=== PATIENT | female | born 1985 | race Caucasian/White ===

== ENCOUNTER 2018-10-26 07:08 | Inpatient (IN) | payer OTHER ==
[2018-10-26] MEDS ORDERED: Citric Acid/Sodium Citrate Solution 30 ML Cup PO ONE (07:33)
[2018-10-26] MEDS ORDERED: Sodium Chloride 0.9% 2.5 ML Syringe FLUSH PRN (07:33)
[2018-10-26] MEDS ORDERED: ceFAZolin 2 GM in Premix Bag 1 BAG IV ONE (07:33)
[2018-10-26] MEDS ORDERED: Sodium Chloride 0.9% 10 ML Syringe FLUSH PRN (07:33)
[2018-10-26] MEDS ORDERED: Sodium Chloride 0.9% 10 ML SDV IV PRN (07:33)
[2018-10-26] MEDS ORDERED: Morphine PF 10 MG/10 ML SDV ONE (07:35)
[2018-10-26] MEDS ORDERED: Ondansetron 4 MG/2 ML SDV ONE (07:35)
[2018-10-26] MEDS ORDERED: Morphine 10 MG/ML Syringe ONE (07:35)
[2018-10-26] MEDS ORDERED: fentaNYL 100 MCG/2 ML SDV ONE (07:37)
[2018-10-26] MEDS ORDERED: ceFAZolin/Dextrose,Iso-Osmotic 2 GM/50 ML Duplex Bag IV ONE (07:39)
[2018-10-26] MEDS ORDERED: Octyl 2-Cyanoacrylate 1 Tube ONE (07:44)
[2018-10-26] MEDS ORDERED: Oxytocin/0.9 % Sodium Chloride 30 UNIT/500 ML BAG IV SCH (07:45)
[2018-10-26] MEDS ORDERED: Lactated Ringers 1,000 ML IV SCH ×2 (07:45→09:30)
--- NOTE | 2018-10-26 07:45 | PCM.PREANE ---
Preanesthetic Assessment - Anesthesia/Transfusion/Family Hx Anesthesia History: Prior Anesthesia Without Reaction Family History of Anesthesia Reaction: No Transfusion History: No Prior Transfusion(s) Intubation History: Unknown - Review of Systems General: No Symptoms Pulmonary: No Symptoms Cardiovascular: No Symptoms Gastrointestinal: No Symptoms Neurological: No Symptoms Other: Reports: None - Physical Assessment Height: 5 ft 7 in Weight: 87.997 kg ASA Class: 2E Mental Status: Alert & Oriented x3 Airway Class: Mallampati = 2 Dentition: Reports: Normal Dentition Thyro-Mental Finger Breadths: 3 Mouth Opening Finger Breadths: 3 ROM/Head Extension: Full Lungs: Clear to Auscultation, Normal Respiratory Effort Cardiovascular: Regular Rate, Regular Rhythm - Allergies Allergies/Adverse Reactions: Allergies Allergy/AdvReac Type Severity Reaction Status Date / Time Sulfa (Sulfonamide Allergy Vomiting Verified 10/24/18 14:21 Antibiotics) - Acknowledgements Anesthesia Type Planned: Spinal Pt an Appropriate Candidate for the Planned Anesthesia: Yes Alternatives and Risks of Anesthesia Discussed w Pt/Guardian: Yes Pt/Guardian Understands and Agrees with Anesthesia Plan: Yes PreAnesthesia Questionnaire HEENT History: Reports: None Cardiovascular History: Reports: None Respiratory History: Reports: Asthma (Seasonal) Gastrointestinal History: Reports: GERD (All the time) Genitourinary History: Reports: None [employer] SURVEYOR History: Reports: : 2 Para: 1 LMP (Approximate): Musculoskeletal History: Reports: None Neurological History: Reports: None Psychiatric History: Reports: None Endocrine/Metabolic History: Reports: Obesity/BMI 30+ Hematologic History: Reports: None Immunologic History: Reports: None Oncologic (Cancer) History: Reports: None Dermatologic History: Reports: None - Infectious Disease History Infectious Disease History: Reports: None - HOME MEDS Home Medications: Home Meds PNV95/Ferrous Fumarate/FA [ Tablet] 1 tab PO DAILY 10/24/18 [History] - CURRENT (IN HOUSE) MEDS Current Meds: Current Medications Cefazolin Sodium/Dextrose 2 gm (/ Premix) 50 mls @ 100 mls/hr IV ONETIME ONE Stop: 10/26/18 08:02 Lactated Ringer's (Ringers, Lactated) 1,000 mls @ 500 mls/hr IV BOLUS MI Oxytocin/Sodium Chloride (Oxytocin 30 Unit/500 Ml-Ns) 30 unit in 500 mls @ 250 mls/hr IV TITRATE MI Sodium Chloride (Saline Flush) 10 ml FLUSH ASDIRECTED PRN PRN Reason: Keep Vein Open Sodium Chloride (Saline Flush) 2.5 ml FLUSH ASDIRECTED PRN PRN Reason: Keep Vein Open Sodium Chloride (Normal Saline) 10 ml IV ASDIRECTED PRN PRN Reason: IV Use Discontinued Medications Cefazolin Sodium/Dextrose (Ancef) Confirm Administered Dose 2 gm IV .STK-MED ONE Stop: 10/26/18 07:40 Citric Acid/Sodium Citrate (Bicitra Solution) 30 ml PO ONETIME ONE Stop: 10/26/18 07:34 Fentanyl (Sublimaze) Confirm Administered Dose 100 mcg .ROUTE .STK-MED ONE Stop: 10/26/18 07:38 Morphine Sulfate (Morphine) Confirm Administered Dose 10 mg .ROUTE .STK-MED ONE Stop: 10/26/18 07:36 Morphine Sulfate (Duramorph Pf) Confirm Administered Dose 10 mg .ROUTE .STK-MED ONE Stop: 10/26/18 07:36 Ondansetron HCl (Zofran) Confirm Administered Dose 4 mg .ROUTE .STK-MED ONE Stop: 10/26/18 07:36
[2018-10-26] MEDS ORDERED: Citric Acid/Sodium Citrate Solution 30 ML Cup ONE (07:47)
[2018-10-26] MEDS ORDERED: ePHEDrine 50 MG/ML SDV ONE (07:49)
[2018-10-26] MEDS ORDERED: Midazolam 1 MG/ML 2 ML SDV ONE (08:23)
[2018-10-26] MEDS ORDERED: Naloxone 0.4 MG/ML Syringe IVPUSH ONE (08:46)
[2018-10-26] MEDS ORDERED: Lanolin 100% Cream 7 GM Tube TOP PRN (09:23)
[2018-10-26] MEDS ORDERED: Ondansetron 4 MG/2 ML SDV IVPUSH PRN (09:23)
[2018-10-26] MEDS ORDERED: Acetaminophen/oxyCODONE 325-5 MG Tab PO PRN ×2 (09:23)
[2018-10-26] MEDS ORDERED: diphenhydrAMINE 50 MG/ML SDV IVPUSH PRN (09:23)
[2018-10-26] MEDS ORDERED: Bisacodyl 10 MG Supp RECTAL PRN (09:23)
--- NOTE | 2018-10-26 09:41 | PCM.OPNOTE ---
- General Post-Op/Procedure Note Date of Surgery/Procedure: 10/26/18 Operative Procedure(s): Repeat LTCS, extensive lysis of adhesions Findings: Liveborn male infant born at 08:21 with scores of 8/9 who weighed in at 3170 gm. Alexs abdomen had extensive adhesive disease including the uterus to the anterior abdomenal wall. See dictation for further details. Pre Op Diagnosis: 36.1 wga IUP, active labor, prior LTCS Post-Op Diagnosis: Same Anesthesia Technique: Spinal Primary Surgeon: Zaida Suarez Secondary Surgeon: Quynh Zhou ([id number]) Anesthesia Provider: Jovana Abbott Pathology: none Fluid Replacement, Intraop: 3,600 Output, Urine Amount: 160 EBL in mLs: 700 Complications: none known Condition: Good Free Text/Narrative:: Janee is a 32 year old at 36.1 wga who presented to the labor and delivery unit in active labor. She had a prior LTCS at 39 wga for breech presentation and with post-op infection; she desired a repeat LTCS. Repeat LTCS was done and extensive adhesion disease was encountered in her abdomen and pelvis, including, but not limited to, adhesion of the anterior uterus to the posterior rectus muscles. See dictation by Dr. Suarez for further details. Janee' s LTCS continued without known complications and she remained stable throughout. Baby was taken to nursery for care.
--- NOTE | 2018-10-26 10:20 | PCM.POSTAN ---
POST ANESTHESIA ASSESSMENT - MENTAL STATUS Mental Status: Alert, Oriented - RESPIRATORY Respiratory Status: Respiratory Rate WNL, Airway Patent, O2 Saturation Stable - CARDIOVASCULAR CV Status: Pulse Rate WNL, Blood Pressure Stable - GASTROINTESTINAL GI Status: No Symptoms - PAIN Pain Score: 0 - OBSERVATIONS Free Text/Narrative:: Pt crying due to baby being transferred to another facility. Denies any pain or discomfort.
[2018-10-26] MEDS ORDERED: Promethazine 25 MG/ML SDV IM ONE (12:11)
[2018-10-26] MEDS ORDERED: Scopolamine 1.5 MG Transdermal Patch TRDERM PRN (13:18)
--- NOTE | 2018-10-26 14:32 | HP ---
DATE OF : 1985 PRIMARY CARE PHYSICIAN: None PCP CHIEF COMPLAINT: Labor. HISTORY: This is a 32-year-old female, G2, P 1-0-0-1. She is at 36-1/7 weeks' gestation. She presents to Labor and Delivery with regular painful contractions. She was seen two days ago with similar symptoms and did not progress. She was known to be approximately 3 cm at that time. She has now had regular painful contractions through the night, and she is 4 to 5 cm, 90%, minus 1 station. She had category 1 heart tones. She has had a prior delivery for breech presentation. She has been previously counseled regarding options for vaginal after versus repeat and desires to proceed with repeat . Her care has otherwise been uncomplicated. She has a history of hyperemesis gravidarum. She did have a postoperative infection with her prior . She is blood type O-positive, rubella immune. She has had severe gastroesophageal reflex, she is on omeprazole and Zantac for this. PAST MEDICAL HISTORY: Significant for gastroesophageal reflux; asthma due to seasonal allergies, she uses an albuterol inhaler occasionally. She had an abnormal Pap in 2009 with no intervention required, followup Paps have been normal. PAST SURGICAL HISTORY: Appendectomy in 2001, section in 2007, breast augmentation in 2010. ALLERGIES: To sulfa. She has an intolerance to doxycycline, which makes her nauseated. CURRENT MEDICATIONS: Omeprazole, Zantac, vitamin. SOCIAL HISTORY: She denies use of tobacco, alcohol, or street drugs. She is an [employer] administrator. She is to her , [employer]. She did receive her flu shot this year as well as her Tdap during the . FAMILY HISTORY: Significant for paternal grandfather and father with gastroesophageal reflux and esophageal cancer. Mother is alive, she had a stroke at the age of 35 due to an addiction issue. Maternal aunt has Aurelio's thyroiditis. Sister has Aurelio's thyroiditis. PHYSICAL EXAMINATION: VITAL SIGNS: Blood pressure is 125/68, pulse is 84. heart tones 145, moderate variability, accelerations present, no decelerations. Contractions are every 3 to 5 minutes. GENERAL: She is alert and oriented. She is in no acute distress. LUNGS: Clear bilaterally. CV: Regular rate without murmur. ABDOMEN: Soft, gravid, nontender. EXTREMITIES: Show trace edema. : Vaginal exam 4+, 90%, minus 2 station. ASSESSMENT AND PLAN: A 36-1/7 weeks' intrauterine , active labor, prior delivery, desires repeat with risks of section discussed including bleeding; infection; injury to bowel, bladder, blood vessels or other organs; risk of thromboembolic event; risk of anesthesia. Discussed with all of these issues, she does desire to proceed with repeat . She has had her group B Strep culture obtained and is pending at the time of this dictation. It should be back within the next 24 hours. As she has a repeat , prophylaxis will not be utilized, just routine preop prophylaxis with Ancef. CLAUDE ESPINO /[id number]
--- NOTE | 2018-10-26 15:47 | OR ---
SURGEON: Zaida Suarez M.D. DATE OF PROCEDURE: 10/26/2018 PREOPERATIVE DIAGNOSES: 36 and 1/7th week intrauterine , premature labor, prior delivery. POSTOPERATIVE DIAGNOSES: 36 and 1/7th week intrauterine , premature labor, prior delivery, and extensive pelvic adhesions. [employer]VEL TRUCK DRIVER: JSOE Wolf. ANESTHESIA: Spinal. ESTIMATED BLOOD LOSS: 700 mL. FLUIDS: 2600 mL of crystalloid. URINE OUTPUT: 160 mL. FINDINGS: Live-born male, 8 and 9. Weight of 3170 g. The anterior uterus was densely adherent to the rectus muscle. There was no intervening peritoneum. The right tube was attached to bowel and the left tube was involved in the anterior abdominal wall adhesion. After lysis of adhesions, the tubes and ovaries appeared normal with a portion of the right tube still adherent to bowel, which I did not feel I could safely dissect. COMPLICATION: None known. DISPOSITION: Stable to recovery. BRIEF HISTORY: This is a 32-year-old female, G2, P1-0-0-1. She has had one prior section at 39 weeks for breech presentation. This was complicated by an infection, which by history sounds like endometritis. She has had uncomplicated care, and she has a plan for repeat delivery having been counseled regarding option of vaginal trial of labor including potential benefit of avoiding a surgical procedure, risk of uterine rupture versus proceeding with a repeat low transverse section with risks discussed including bleeding, infection, injury to bowel, bladder, blood vessels or other organs, risk of thromboembolic event, and risk of anesthesia. Understanding all these risks, she does desire to proceed with a repeat delivery. She presented at 4+ cm, 90% with regular contractions. Group B strep status is unknown. She was intact at the time of presentation without rupture of membranes. DESCRIPTION OF PROCEDURE: With the patient in left tilt position, under adequate spinal analgesia, the abdomen was prepped with chlorhexidine and draped in usual fashion for abdominal surgery. SCDs were in place. Jay catheter had been placed, and she received 2 g of Ancef IV. After documentation of adequate analgesia and an appropriate time-out was held, the prior cicatrix was excised and the incision was carried through the subcutaneous tissue to the fascia, which was scored transversely in the midline. The fascia was elevated from the underlying rectus muscles and using sharp and blunt dissection. I then attempted to separate the rectus muscle toward the cephalad portion of the fascia and found that there was dense adhesions. I then moved lower just above the level where I felt the bladder was, and I was able to separate the rectus muscle and identify some peritoneum, which I elevated and carefully incised with Metzenbaum scissors ensuring that I could see the Metzenbaum scissors through the peritoneal window. I was then able to place a finger into the peritoneal cavity. This was over the extremely lower uterine segment. I could not access enough. I could not enlarge the anterior incision without the rectus muscle from the uterus, and I was able to do so on the right. The rectus muscle remained attached on the left, but this did allow enough room to proceed with delivery of the fetus. The bladder flap was already well in the pelvis. The bladder retractor was placed. The visceroperitoneum was pushed well below the incision site and a transverse curvilinear incision was made over the lower uterine segment using a scalpel. The incision was extended using sharp and blunt dissection. The amniotic membranes were ruptured. Clear fluid was noted. The head was deep in the pelvis and was elevated without any difficulty, delivered via the uterine incision and with fundal pressure. After the cord had ceased to pulsate, it was doubly clamped and cut. Cord blood was collected for cord ABGs as well as routine cord blood sampling. Pitocin was initiated after delivery of the to assist with delivery. I was unable to perform fundal massage internally as I could not access the fundus of the uterus due to the extensive adhesions, but external massage was utilized and the placenta was delivered. The uterus was cleaned with a dry laparotomy tape. The cervix was open and therefore did not need to be opened with a ring forceps. The uterine incision was closed with a running lock suture of 0 Polysorb followed by an imbricating layer of 0 Polysorb. I then proceeded to evaluate the extensive adhesions. The anterior uterine serosa and superficial myometrium were friable and there was a 3 to 4 mm deep defect in the anterior uterine wall. This was closed with a baseball type suture. This was not deep enough to enter or be near the endometrium and is not a contraindication to a 39 week delivery in the future. However, repeat is recommended. I then proceeded to assess the risk versus benefit of proceeding with further lysis of adhesion. As the uterus was completely immobile along the anterior abdominal wall, there was no intervening peritoneum. I felt that this would be a cause of pain. I had spoken with the patient. She states that she has had severe pain with intercourse as well as cramping GI side effects and severe pain after a significant workout. After this, we did decide to proceed with lysis of adhesions. Basically, the anterior uterus was adherent to the rectus muscle directly without any intervening plane or peritoneum, and I used sharp and blunt manipulation, evaluation as well as electrocautery to separate the rectus muscle from the anterior uterus. This being accomplished, it was apparent that the left tube was involved in this dense adhesion, and I was able to use Metzenbaum scissors to carefully separate the tube from the anterior abdominal wall. The tube was then free. The ovary appeared normal. The rectus muscle was hemostatic. I then turned to the right side where the tube was noted to be adherent to the terminal ileum versus colon. The tube was kinked on the proximal portion as it was attached to the uterus and I did release this adhesion. I did not release any of the adhesions associated with the bowel. I then found a layer of peritoneum that I was able to reapproximate in the midline after I had carefully assessed for hemostasis and I had placed the Interceed over the anterior uterine defect, the pelvis had also been cleaned and irrigated and was hemostatic. After the Interceed had been placed, the uterus was now completely free of the anterior abdominal wall and completely mobile. The left tube was completely mobile. The right tube was proximally mobile and distally involved in bowel. I was able to identify the peritoneum and then perform a running mattress suture to reapproximate in the midline between the rectus muscle and the uterus. Prior to closing the peritoneum, I did backfill the bladder with sterile milk. There was no leakage of sterile milk and I also used this to help delineate the area of peritoneum that may be involved with the bladder versus bowel and there was no evidence of any bowel anywhere near the dissection. The rectus muscle was then loosely approximated in the midline using a running mattress suture of 0 Polysorb. The posterior aspect of the fascia was inspected, was hemostatic. The fascial incision was closed with a running suture of 0 Polysorb. Subcutaneous tissue was irrigated. Any areas of bleeding that were noted were cauterized. The skin was closed with a running subcuticular suture of 3-0 Monocryl. Final sponge, needle, and instrument counts were reported as correct. There were no known complications. The patient was transferred to recovery in good condition and the infant is in nursery, currently being assessed. CLAUDE ESPINO /[id number]
[2018-10-26] MEDS: Acetaminophen/HYDROcodone 325-5 MG Tab PO PRN ×2 (16:10→20:07)
--- NOTE | 2018-10-26 19:53 | PCM48HPAN ---
Post Anesthesia Note - EVALUATION WITHIN 48HRS OF ANESTHETIC Vital Signs in Normal Range: Yes Patient Participated in Evaluation: Yes Respiratory Function Stable: Yes Airway Patent: Yes Cardiovascular Function Stable: Yes Hydration Status Stable: Yes Pain Control Satisfactory: Yes Nausea and Vomiting Control Satisfactory: Yes (pt has scopolamine patch and denies nause at this time) Mental Status Recovered: Yes Resp Rate: 12 - COMMENTS/OBSERVATIONS Free Text/Narrative:: Pt's itching and nausea are improved with scopolamine patch and benadryl. Pt is starting to have pain and nurse is giving Narco
[2018-10-26] MEDS: Docusate Sodium 100 MG Cap PO SCH (20:01)
[2018-10-27] MEDS: Acetaminophen/HYDROcodone 325-5 MG Tab PO PRN ×6 (00:16→21:08)
[2018-10-27] MEDS ORDERED: Phenylephrine/Normal Saline 100 MCG/ML 10 ML Syringe ONE (07:06)
[2018-10-27] MEDS ORDERED: Oxytocin 10 Units/1 ML SDV ONE (07:13)
--- NOTE | 2018-10-27 08:00 | PCM.PNPP ---
Addendum entered and electronically signed by Quynh Zhou 10/27/18 08:31: Addendum-- baby was transferred out for NICU care (baby is not in nursery). KELLY Hanson Original Note: <Quynh Zhou - Last Filed: 10/27/18 07:54> - General Info Date of Service: 10/27/18 Admission Dx/Problem (Free Text): Repeat LTCS Subjective Update: Janee is POD 1 for repeat LTCS. She states that she is having more pain at the incision site and cramping in her abdomen than with her prior C section. She is ambulating well and only has trouble with transitioning from sitting to standing due to pain. She is eating and urinating without issue. She is . Patient states that she feels she will need another night to stay in the hospital. Functional Status: Reports: Pain Controlled, Tolerating Diet, Ambulating, Urinating - Review of Systems General: Reports: No Symptoms Pulmonary: Reports: No Symptoms Cardiovascular: Reports: No Symptoms Gastrointestinal: Reports: No Symptoms Genitourinary: Reports: No Symptoms Musculoskeletal: Reports: No Symptoms Skin: Reports: No Symptoms Neurological: Reports: No Symptoms Psychiatric: Reports: No Symptoms - General Info Date of Service: 10/27/18 - Patient Data Vital Signs - Most Recent: Last Vital Signs Temp 98.2 F 10/27/18 04:40 Pulse 81 10/27/18 07:00 Resp 19 10/27/18 07:00 BP 95/59 L 10/27/18 04:40 Pulse Ox 97 10/27/18 07:00 Weight - Most Recent: 87.997 kg I&O - Last 24 Hours: Intake & Output 10/26/18 10/27/18 10/27/18 22:59 06:59 14:59 Intake Total 1500 Output Total 1600 Balance -100 Lab Results - Last 24 Hours: Laboratory Results - last 24 hr 10/26/18 10/26/18 10/26/18 Range/Units 07:42 07:42 08:21 WBC 9.26 (4.0-11.0) K/uL RBC 4.03 L (4.30-5.90) M/uL Hgb 12.3 (12.0-16.0) g/dL Hct 36.4 (36.0-46.0) % MCV 90.3 (80.0-98.0) fL MCH 30.5 (27.0-32.0) pg MCHC 33.8 (31.0-37.0) g/dL RDW Std Deviation 41.1 (28.0-62.0) fl RDW Coeff of Wilfred 13 (11.0-15.0) % Plt Count 177 (150-400) K/uL MPV 11.10 (7.40-12.00) fL Nucleated RBC % 0.0 /100WBC Nucleated RBCs # 0 K/uL Cord ABG pH 7.259 (7.18-7.38) Cord ABG Base Excess -5 (-10--2) Cord VBG pH 7.333 (7.25-7.45) Cord VBG Base Excess -4 (-10--2) Blood Type O POSITIVE Antibody Screen NEGATIVE 10/27/18 Range/Units 05:00 WBC (4.0-11.0) K/uL RBC (4.30-5.90) M/uL Hgb 11.1 L (12.0-16.0) g/dL Hct 33.1 L (36.0-46.0) % MCV (80.0-98.0) fL MCH (27.0-32.0) pg MCHC (31.0-37.0) g/dL RDW Std Deviation (28.0-62.0) fl RDW Coeff of Wilfred (11.0-15.0) % Plt Count (150-400) K/uL MPV (7.40-12.00) fL Nucleated RBC % /100WBC Nucleated RBCs # K/uL Cord ABG pH (7.18-7.38) Cord ABG Base Excess (-10--2) Cord VBG pH (7.25-7.45) Cord VBG Base Excess (-10--2) Blood Type Antibody Screen Med Orders - Current: Current Medications Hydrocodone Bitart/Acetaminophen ([place] 325-5 Mg) 1 tab PO Q4H PRN PRN Reason: Pain Last Admin: 10/27/18 00:16 Dose: 1 tab Hydrocodone Bitart/Acetaminophen ([place] 325-5 Mg) 2 tab PO Q4H PRN PRN Reason: Pain (moderate 4-6) Last Admin: 10/27/18 04:24 Dose: 2 tab Bisacodyl (Dulcolax) 10 mg RECTAL ONETIME PRN PRN Reason: Constipation Diphenhydramine HCl (Benadryl) 25 mg IVPUSH Q6H PRN PRN Reason: Itching or Nausea Last Admin: 10/26/18 19:30 Dose: 25 mg Docusate Sodium (Colace) 100 mg PO BID [place] Last Admin: 10/26/18 20:01 Dose: 100 mg Emollient Ointment (Lansinoh Hpa) 0 gm TOP ASDIRECTED PRN PRN Reason: Sore Nipples Lactated Ringer's (Ringers, Lactated) 1,000 mls @ 125 mls/hr IV ASDIRECTED [facility] Ondansetron HCl (Zofran) 4 mg IVPUSH Q4H PRN PRN Reason: Nausea/Vomiting Scopolamine (Transderm-Scop) 1.5 mg TRDERM Q72H PRN PRN Reason: Nausea/Vomiting Last Admin: 10/26/18 13:44 Dose: 1.5 mg Discontinued Medications Cefazolin Sodium/Dextrose (Ancef) Confirm Administered Dose 2 gm IV .STK-MED ONE Stop: 10/26/18 07:40 Citric Acid/Sodium Citrate (Bicitra Solution) 30 ml PO ONETIME ONE Stop: 10/26/18 07:34 Last Admin: 10/26/18 07:52 Dose: 30 ml Citric Acid/Sodium Citrate (Bicitra Solution) Confirm Administered Dose 30 ml .ROUTE .STK-MED ONE Stop: 10/26/18 07:48 Ephedrine Sulfate (Ephedrine Sulfate) Confirm Administered Dose 50 mg .ROUTE .STK-MED ONE Stop: 10/26/18 07:50 Fentanyl (Sublimaze) Confirm Administered Dose 100 mcg .ROUTE .STK-MED ONE Stop: 10/26/18 07:38 Cefazolin Sodium/Dextrose 2 gm (/ Premix) 50 mls @ 100 mls/hr IV ONETIME ONE Stop: 10/26/18 08:02 Lactated Ringer's (Ringers, Lactated) 1,000 mls @ 500 mls/hr IV BOLUS [facility] Last Admin: 10/26/18 07:40 Dose: 999 mls/hr Oxytocin/Sodium Chloride (Oxytocin 30 Unit/500 Ml-Ns) 30 unit in 500 mls @ 250 mls/hr IV TITRATE [place] Midazolam HCl (Versed 1 Mg/Ml) Confirm Administered Dose 2 mg .ROUTE .STK-MED ONE Stop: 10/26/18 08:24 Morphine Sulfate (Morphine) Confirm Administered Dose 10 mg .ROUTE .STK-MED ONE Stop: 10/26/18 07:36 Morphine Sulfate (Duramorph Pf) Confirm Administered Dose 10 mg .ROUTE .STK-MED ONE Stop: 10/26/18 07:36 Naloxone HCl (Narcan) 0.1 mg IVPUSH ONETIME ONE Stop: 10/26/18 08:47 Octyl Cyanoacrylate (Dermabond Advance) Confirm Administered Dose 1 applic .ROUTE .STK-MED ONE Stop: 10/26/18 07:45 Ondansetron HCl (Zofran) Confirm Administered Dose 4 mg .ROUTE .STK-MED ONE Stop: 10/26/18 07:36 Oxycodone/Acetaminophen (Percocet 325-5 Mg) 1 tab PO Q4H PRN PRN Reason: Pain (moderate 4-6) Oxycodone/Acetaminophen (Percocet 325-5 Mg) 2 tab PO Q4H PRN PRN Reason: Pain (moderate 4-6) Oxytocin (Pitocin) Confirm Administered Dose 30 unit .ROUTE .STK-MED ONE Stop: 10/27/18 07:14 Phenylephrine HCl (Phenylephrine In Ns 100 Mcg/Ml) Confirm Administered Dose 1 mg .ROUTE .STK-MED ONE Stop: 10/27/18 07:07 Promethazine HCl (Phenergan) 25 mg IM ONETIME ONE Stop: 10/26/18 12:12 Last Admin: 10/26/18 12:30 Dose: 25 mg Sodium Chloride (Saline Flush) 10 ml FLUSH ASDIRECTED PRN PRN Reason: Keep Vein Open Sodium Chloride (Saline Flush) 2.5 ml FLUSH ASDIRECTED PRN PRN Reason: Keep Vein Open Sodium Chloride (Normal Saline) 10 ml IV ASDIRECTED PRN PRN Reason: IV Use - Infant Interaction Disposition, : [place] to Nursery Infant Interaction: Not Applicable Infant Feeding: Attempted ; Nursed Fair/Poor Support Person: - Recovery Exam Fundal Tone: Firm Fundal Level: 1 Fingerbreadths Below Umbilicus Fundal Placement: Midline Lochia Amount: Scant Lochia Color: Rubra/Red Bladder Status: Voiding Urinary Elimination: Voided - Exam General: Alert, Oriented HEENT: Pupils Equal, Pupils Reactive, EOMI, Mucous Membr. Moist/Brice Neck: Supple Lungs: Clear to Auscultation, Normal Respiratory Effort Cardiovascular: Regular Rate, Regular Rhythm GI/Abdominal Exam: Normal Bowel Sounds, Soft, No Organomegaly, No Distention, Tender (cramping with palpation of uterus; tenderness at incision site) Extremities: Normal Inspection, Normal Range of Motion, Non-Tender, No Pedal Edema Skin: Warm, Dry, Intact Wound/Incisions: Healing Well Neurological: No New Focal Deficit Psy/Mental Status: Alert, Normal Affect, Normal Mood - Problem List & Annotations (1) delivery delivered SNOMED Code(s): 736327764 Code(s): O82 - ENCOUNTER FOR DELIVERY WITHOUT INDICATION Status: Acute Current Visit: Yes - Problem List Review Problem List Initiated/Reviewed/Updated: Yes - Assessment Assessment:: Janee is POD 1 for repeat LTCS. She has started oral pain medications and states quite a bit of cramping pain in the abdomen. She has been ambulating and henson was removing this morning and she voided. She will likely remain hospitalized tonight to continue cares. Labs are reassuring and vital signs are stable. - Plan Plan:: Continue cares Pain management, oral prn Encourage ambulation <Quynh Kwok - Last Filed: 10/27/18 09:06> - Patient Data Vital Signs - Most Recent: Last Vital Signs Temp 36.8 C 10/27/18 04:40 Pulse 81 10/27/18 07:00 Resp 19 10/27/18 07:00 BP 95/59 L 10/27/18 04:40 Pulse Ox 97 10/27/18 07:00 I&O - Last 24 Hours: Intake & Output 10/26/18 10/27/18 10/27/18 22:59 06:59 14:59 Intake Total 1500 Output Total 1600 Balance -100 Lab Results - Last 24 Hours: Laboratory Results - last 24 hr 10/26/18 10/27/18 Range/Units 08:21 05:00 Hgb 11.1 L (12.0-16.0) g/dL Hct 33.1 L (36.0-46.0) % Cord ABG pH 7.259 (7.18-7.38) Cord ABG Base Excess -5 (-10--2) Cord VBG pH 7.333 (7.25-7.45) Cord VBG Base Excess -4 (-10--2) Med Orders - Current: Current Medications Hydrocodone Bitart/Acetaminophen ([place]akeslee 325-5 Mg) 1 tab PO Q4H PRN PRN Reason: Pain Last Admin: 10/27/18 00:16 Dose: 1 tab Hydrocodone Bitart/Acetaminophen ([place] 325-5 Mg) 2 tab PO Q4H PRN PRN Reason: Pain (moderate 4-6) Last Admin: 10/27/18 08:55 Dose: 2 tab Bisacodyl (Dulcolax) 10 mg RECTAL ONETIME PRN PRN Reason: Constipation Diphenhydramine HCl (Benadryl) 25 mg IVPUSH Q6H PRN PRN Reason: Itching or Nausea Last Admin: 10/26/18 19:30 Dose: 25 mg Docusate Sodium (Colace) 100 mg PO BID MI Last Admin: 10/27/18 08:56 Dose: 100 mg Emollient Ointment (Lansinoh Hpa) 0 gm TOP ASDIRECTED PRN PRN Reason: Sore Nipples Lactated Ringer's (Ringers, Lactated) 1,000 mls @ 125 mls/hr IV ASDIRECTED [place] Ondansetron HCl (Zofran) 4 mg IVPUSH Q4H PRN PRN Reason: Nausea/Vomiting Scopolamine (Transderm-Scop) 1.5 mg TRDERM Q72H PRN PRN Reason: Nausea/Vomiting Last Admin: 10/26/18 13:44 Dose: 1.5 mg Discontinued Medications Cefazolin Sodium/Dextrose (Ancef) Confirm Administered Dose 2 gm IV .STK-MED ONE Stop: 10/26/18 07:40 Citric Acid/Sodium Citrate (Bicitra Solution) 30 ml PO ONETIME ONE Stop: 10/26/18 07:34 Last Admin: 10/26/18 07:52 Dose: 30 ml Citric Acid/Sodium Citrate (Bicitra Solution) Confirm Administered Dose 30 ml .ROUTE .STK-MED ONE Stop: 10/26/18 07:48 Ephedrine Sulfate (Ephedrine Sulfate) Confirm Administered Dose 50 mg .ROUTE .STK-MED ONE Stop: 10/26/18 07:50 Fentanyl (Sublimaze) Confirm Administered Dose 100 mcg .ROUTE .STK-MED ONE Stop: 10/26/18 07:38 Cefazolin Sodium/Dextrose 2 gm (/ Premix) 50 mls @ 100 mls/hr IV ONETIME ONE Stop: 10/26/18 08:02 Lactated Ringer's (Ringers, Lactated) 1,000 mls @ 500 mls/hr IV BOLUS [place] Last Admin: 10/26/18 07:40 Dose: 999 mls/hr Oxytocin/Sodium Chloride (Oxytocin 30 Unit/500 Ml-Ns) 30 unit in 500 mls @ 250 mls/hr IV TITRATE [place] Midazolam HCl (Versed 1 Mg/Ml) Confirm Administered Dose 2 mg .ROUTE .STK-MED ONE Stop: 10/26/18 08:24 Morphine Sulfate (Morphine) Confirm Administered Dose 10 mg .ROUTE .STK-MED ONE Stop: 10/26/18 07:36 Morphine Sulfate (Duramorph Pf) Confirm Administered Dose 10 mg .ROUTE .STK-MED ONE Stop: 10/26/18 07:36 Naloxone HCl (Narcan) 0.1 mg IVPUSH ONETIME ONE Stop: 10/26/18 08:47 Octyl Cyanoacrylate (Dermabond Advance) Confirm Administered Dose 1 applic .ROUTE .STK-MED ONE Stop: 10/26/18 07:45 Ondansetron HCl (Zofran) Confirm Administered Dose 4 mg .ROUTE .STK-MED ONE Stop: 10/26/18 07:36 Oxycodone/Acetaminophen (Percocet 325-5 Mg) 1 tab PO Q4H PRN PRN Reason: Pain (moderate 4-6) Oxycodone/Acetaminophen (Percocet 325-5 Mg) 2 tab PO Q4H PRN PRN Reason: Pain (moderate 4-6) Oxytocin (Pitocin) Confirm Administered Dose 30 unit .ROUTE .STK-MED ONE Stop: 10/27/18 07:14 Phenylephrine HCl (Phenylephrine In Ns 100 Mcg/Ml) Confirm Administered Dose 1 mg .ROUTE .STK-MED ONE Stop: 10/27/18 07:07 Promethazine HCl (Phenergan) 25 mg IM ONETIME ONE Stop: 10/26/18 12:12 Last Admin: 10/26/18 12:30 Dose: 25 mg Sodium Chloride (Saline Flush) 10 ml FLUSH ASDIRECTED PRN PRN Reason: Keep Vein Open Sodium Chloride (Saline Flush) 2.5 ml FLUSH ASDIRECTED PRN PRN Reason: Keep Vein Open Sodium Chloride (Normal Saline) 10 ml IV ASDIRECTED PRN PRN Reason: IV Use - Plan Plan:: Patient seen and examined, agree with above. Continue postoperative cares.
[2018-10-27] MEDS: Docusate Sodium 100 MG Cap PO SCH ×2 (08:56→21:08)
[2018-10-27] MEDS ORDERED: Cyclobenzaprine 10 MG Tab PO ONE (19:42)
[2018-10-28] MEDS: Acetaminophen/HYDROcodone 325-5 MG Tab PO PRN ×6 (03:04→23:59)
--- NOTE | 2018-10-28 07:22 | PCM.PNPP ---
<Quynh Zhou - Last Filed: 10/28/18 07:15> - General Info Date of Service: 10/28/18 Admission Dx/Problem (Free Text): Repeat LTCS Subjective Update: Janee is POD 2 for repeat LTCS. She states that her need for pain medications has spaced from 3 to 4 hours and her pain rating has gone from a 7 to a 5 at this time when she asks for another dose. She is not taking NSAIDs due to a history of a gastric ulcer and issues. She ambulated more yesterday. She is eating and urinating without issue. She plans to bottle feed baby and reports that baby is doing well in the NICU in [place]. Functional Status: Reports: Tolerating Diet, Ambulating, Urinating Pain Score: 5 - Review of Systems General: Reports: No Symptoms Pulmonary: Reports: No Symptoms Cardiovascular: Reports: No Symptoms Gastrointestinal: Reports: No Symptoms Genitourinary: Reports: No Symptoms Musculoskeletal: Reports: No Symptoms Skin: Reports: No Symptoms Neurological: Reports: No Symptoms Psychiatric: Reports: No Symptoms - General Info Date of Service: 10/28/18 - Patient Data Vital Signs - Most Recent: Last Vital Signs Temp 98.5 F 10/28/18 04:05 Pulse 86 10/28/18 04:05 Resp 18 10/28/18 04:05 BP 98/58 L 10/28/18 06:00 Pulse Ox 96 10/28/18 04:05 Weight - Most Recent: 87.997 kg Med Orders - Current: Current Medications Hydrocodone Bitart/Acetaminophen ([place] 325-5 Mg) 1 tab PO Q4H PRN PRN Reason: Pain Last Admin: 10/27/18 00:16 Dose: 1 tab Hydrocodone Bitart/Acetaminophen ([place] 325-5 Mg) 2 tab PO Q4H PRN PRN Reason: Pain (moderate 4-6) Last Admin: 10/28/18 06:46 Dose: 2 tab Bisacodyl (Dulcolax) 10 mg RECTAL ONETIME PRN PRN Reason: Constipation Diphenhydramine HCl (Benadryl) 25 mg IVPUSH Q6H PRN PRN Reason: Itching or Nausea Last Admin: 10/26/18 19:30 Dose: 25 mg Docusate Sodium (Colace) 100 mg PO BID MI Last Admin: 10/27/18 21:08 Dose: 100 mg Emollient Ointment (Lansinoh Hpa) 0 gm TOP ASDIRECTED PRN PRN Reason: Sore Nipples Lactated Ringer's (Ringers, Lactated) 1,000 mls @ 125 mls/hr IV ASDIRECTED [place] Ondansetron HCl (Zofran) 4 mg IVPUSH Q4H PRN PRN Reason: Nausea/Vomiting Scopolamine (Transderm-Scop) 1.5 mg TRDERM Q72H PRN PRN Reason: Nausea/Vomiting Last Admin: 10/26/18 13:44 Dose: 1.5 mg Discontinued Medications Cefazolin Sodium/Dextrose (Ancef) Confirm Administered Dose 2 gm IV .STK-MED ONE Stop: 10/26/18 07:40 Citric Acid/Sodium Citrate (Bicitra Solution) 30 ml PO ONETIME ONE Stop: 10/26/18 07:34 Last Admin: 10/26/18 07:52 Dose: 30 ml Citric Acid/Sodium Citrate (Bicitra Solution) Confirm Administered Dose 30 ml .ROUTE .STK-MED ONE Stop: 10/26/18 07:48 Cyclobenzaprine HCl (Flexeril) 10 mg PO ONETIME ONE Stop: 10/27/18 19:43 Last Admin: 10/27/18 21:08 Dose: 10 mg Ephedrine Sulfate (Ephedrine Sulfate) Confirm Administered Dose 50 mg .ROUTE .STK-MED ONE Stop: 10/26/18 07:50 Fentanyl (Sublimaze) Confirm Administered Dose 100 mcg .ROUTE .STK-MED ONE Stop: 10/26/18 07:38 Cefazolin Sodium/Dextrose 2 gm (/ Premix) 50 mls @ 100 mls/hr IV ONETIME ONE Stop: 10/26/18 08:02 Lactated Ringer's (Ringers, Lactated) 1,000 mls @ 500 mls/hr IV BOLUS [place] Last Admin: 10/26/18 07:40 Dose: 999 mls/hr Oxytocin/Sodium Chloride (Oxytocin 30 Unit/500 Ml-Ns) 30 unit in 500 mls @ 250 mls/hr IV TITRATE [place] Midazolam HCl (Versed 1 Mg/Ml) Confirm Administered Dose 2 mg .ROUTE .STK-MED ONE Stop: 10/26/18 08:24 Morphine Sulfate (Morphine) Confirm Administered Dose 10 mg .ROUTE .STK-MED ONE Stop: 10/26/18 07:36 Morphine Sulfate (Duramorph Pf) Confirm Administered Dose 10 mg .ROUTE .STK-MED ONE Stop: 10/26/18 07:36 Naloxone HCl (Narcan) 0.1 mg IVPUSH ONETIME ONE Stop: 10/26/18 08:47 Octyl Cyanoacrylate (Dermabond Advance) Confirm Administered Dose 1 applic .ROUTE .STK-MED ONE Stop: 10/26/18 07:45 Ondansetron HCl (Zofran) Confirm Administered Dose 4 mg .ROUTE .STK-MED ONE Stop: 10/26/18 07:36 Oxycodone/Acetaminophen (Percocet 325-5 Mg) 1 tab PO Q4H PRN PRN Reason: Pain (moderate 4-6) Oxycodone/Acetaminophen (Percocet 325-5 Mg) 2 tab PO Q4H PRN PRN Reason: Pain (moderate 4-6) Oxytocin (Pitocin) Confirm Administered Dose 30 unit .ROUTE .STK-MED ONE Stop: 10/27/18 07:14 Phenylephrine HCl (Phenylephrine In Ns 100 Mcg/Ml) Confirm Administered Dose 1 mg .ROUTE .STK-MED ONE Stop: 10/27/18 07:07 Promethazine HCl (Phenergan) 25 mg IM ONETIME ONE Stop: 10/26/18 12:12 Last Admin: 10/26/18 12:30 Dose: 25 mg Sodium Chloride (Saline Flush) 10 ml FLUSH ASDIRECTED PRN PRN Reason: Keep Vein Open Sodium Chloride (Saline Flush) 2.5 ml FLUSH ASDIRECTED PRN PRN Reason: Keep Vein Open Sodium Chloride (Normal Saline) 10 ml IV ASDIRECTED PRN PRN Reason: IV Use - Interaction Infant Disposition, : [place] in NICU in [place] Interaction: Not Applicable Feeding: Other (see below) (will bottle feed when applicable) Support Person: - Recovery Exam Fundal Tone: Firm Fundal Level: At Umbilicus Fundal Placement: Midline Lochia Amount: Scant Lochia Color: Rubra/Red Perineum Description: Intact, Minimal Bruising/Swelling Bladder Status: Voiding Urinary Elimination: Voided - Exam General: Alert, Oriented HEENT: Pupils Equal, Pupils Reactive, EOMI Neck: Supple Lungs: Clear to Auscultation, Normal Respiratory Effort Cardiovascular: Regular Rate, Regular Rhythm GI/Abdominal Exam: Normal Bowel Sounds, Soft, No Distention, Tender. No: Guarding Extremities: Normal Inspection, Normal Range of Motion, Non-Tender, No Pedal Edema, Normal Capillary Refill Skin: Warm, Dry, Intact Wound/Incisions: Healing Well Neurological: No New Focal Deficit Psy/Mental Status: Alert, Normal Affect, Normal Mood - Problem List & Annotations (1) delivery delivered SNOMED Code(s): 777991329 Code(s): O82 - ENCOUNTER FOR DELIVERY WITHOUT INDICATION Status: Acute Current Visit: Yes - Problem List Review Problem List Initiated/Reviewed/Updated: Yes - Assessment Assessment:: Janee is POD 2 for repeat LTCS. Her pain is slowly improving on her oral pain medications; patient may need another night in the hospital for cares. She has a tender fundus but remains afebrile. She has minimal lochia. Labs from yesterday were reassurring and no new symptoms have arisen. Blood pressure this morning is lower than it has been, but she remains asymptomatic of this. <Quynh Kwok R - Last Filed: 10/28/18 08:46> - Patient Data Vital Signs - Most Recent: Last Vital Signs Temp 36.6 C 10/28/18 08:10 Pulse 74 10/28/18 08:10 Resp 16 10/28/18 08:10 BP 100/66 10/28/18 08:10 Pulse Ox 95 10/28/18 08:10 Med Orders - Current: Current Medications Hydrocodone Bitart/Acetaminophen ([place] 325-5 Mg) 1 tab PO Q4H PRN PRN Reason: Pain Last Admin: 10/27/18 00:16 Dose: 1 tab Hydrocodone Bitart/Acetaminophen ([place] 325-5 Mg) 2 tab PO Q4H PRN PRN Reason: Pain (moderate 4-6) Last Admin: 10/28/18 06:46 Dose: 2 tab Bisacodyl (Dulcolax) 10 mg RECTAL ONETIME PRN PRN Reason: Constipation Diphenhydramine HCl (Benadryl) 25 mg IVPUSH Q6H PRN PRN Reason: Itching or Nausea Last Admin: 10/26/18 19:30 Dose: 25 mg Docusate Sodium (Colace) 100 mg PO BID [facility] Last Admin: 10/27/18 21:08 Dose: 100 mg Emollient Ointment (Lansinoh Hpa) 0 gm TOP ASDIRECTED PRN PRN Reason: Sore Nipples Lactated Ringer's (Ringers, Lactated) 1,000 mls @ 125 mls/hr IV ASDIRECTED [place] Ondansetron HCl (Zofran) 4 mg IVPUSH Q4H PRN PRN Reason: Nausea/Vomiting Scopolamine (Transderm-Scop) 1.5 mg TRDERM Q72H PRN PRN Reason: Nausea/Vomiting Last Admin: 10/26/18 13:44 Dose: 1.5 mg Discontinued Medications Cefazolin Sodium/Dextrose (Ancef) Confirm Administered Dose 2 gm IV .STK-MED ONE Stop: 10/26/18 07:40 Citric Acid/Sodium Citrate (Bicitra Solution) 30 ml PO ONETIME ONE Stop: 10/26/18 07:34 Last Admin: 10/26/18 07:52 Dose: 30 ml Citric Acid/Sodium Citrate (Bicitra Solution) Confirm Administered Dose 30 ml .ROUTE .STK-MED ONE Stop: 10/26/18 07:48 Cyclobenzaprine HCl (Flexeril) 10 mg PO ONETIME ONE Stop: 10/27/18 19:43 Last Admin: 10/27/18 21:08 Dose: 10 mg Ephedrine Sulfate (Ephedrine Sulfate) Confirm Administered Dose 50 mg .ROUTE .STK-MED ONE Stop: 10/26/18 07:50 Fentanyl (Sublimaze) Confirm Administered Dose 100 mcg .ROUTE .STK-MED ONE Stop: 10/26/18 07:38 Cefazolin Sodium/Dextrose 2 gm (/ Premix) 50 mls @ 100 mls/hr IV ONETIME ONE Stop: 10/26/18 08:02 Lactated Ringer's (Ringers, Lactated) 1,000 mls @ 500 mls/hr IV BOLUS [facility] Last Admin: 10/26/18 07:40 Dose: 999 mls/hr Oxytocin/Sodium Chloride (Oxytocin 30 Unit/500 Ml-Ns) 30 unit in 500 mls @ 250 mls/hr IV TITRATE [place] Midazolam HCl (Versed 1 Mg/Ml) Confirm Administered Dose 2 mg .ROUTE .STK-MED ONE Stop: 10/26/18 08:24 Morphine Sulfate (Morphine) Confirm Administered Dose 10 mg .ROUTE .STK-MED ONE Stop: 10/26/18 07:36 Morphine Sulfate (Duramorph Pf) Confirm Administered Dose 10 mg .ROUTE .STK-MED ONE Stop: 10/26/18 07:36 Naloxone HCl (Narcan) 0.1 mg IVPUSH ONETIME ONE Stop: 10/26/18 08:47 Octyl Cyanoacrylate (Dermabond Advance) Confirm Administered Dose 1 applic .ROUTE .STK-MED ONE Stop: 10/26/18 07:45 Ondansetron HCl (Zofran) Confirm Administered Dose 4 mg .ROUTE .STK-MED ONE Stop: 10/26/18 07:36 Oxycodone/Acetaminophen (Percocet 325-5 Mg) 1 tab PO Q4H PRN PRN Reason: Pain (moderate 4-6) Oxycodone/Acetaminophen (Percocet 325-5 Mg) 2 tab PO Q4H PRN PRN Reason: Pain (moderate 4-6) Oxytocin (Pitocin) Confirm Administered Dose 30 unit .ROUTE .STK-MED ONE Stop: 10/27/18 07:14 Phenylephrine HCl (Phenylephrine In Ns 100 Mcg/Ml) Confirm Administered Dose 1 mg .ROUTE .STK-MED ONE Stop: 10/27/18 07:07 Promethazine HCl (Phenergan) 25 mg IM ONETIME ONE Stop: 10/26/18 12:12 Last Admin: 10/26/18 12:30 Dose: 25 mg Sodium Chloride (Saline Flush) 10 ml FLUSH ASDIRECTED PRN PRN Reason: Keep Vein Open Sodium Chloride (Saline Flush) 2.5 ml FLUSH ASDIRECTED PRN PRN Reason: Keep Vein Open Sodium Chloride (Normal Saline) 10 ml IV ASDIRECTED PRN PRN Reason: IV Use - Plan Plan:: Patient seen and examined, VS are stable. Encourage ambulation today. Continue postoperative cares and plan discharge tomorrow. Baby is doing well, weaning oxygen as of last night.
[2018-10-28] MEDS: Docusate Sodium 100 MG Cap PO SCH ×3 (08:59→21:44)
[2018-10-29] MEDS: Acetaminophen/HYDROcodone 325-5 MG Tab PO PRN ×2 (04:05→08:26)
[2018-10-29] MEDS: Docusate Sodium 100 MG Cap PO SCH (08:27)
--- NOTE | 2018-10-29 08:36 | PCM.PNPP ---
<Quynh Zhou - Last Filed: 10/29/18 08:31> - General Info Date of Service: 10/29/18 Admission Dx/Problem (Free Text): repeat LTCS Subjective Update: Janee notes that she is improving. She has been ambulating on her own with moderate pain. She is needing pain medications every 4 hours and her max pain score is a 6/10 when she needs them. She notes baby was intubated in [place] yesterday, but is likely to be a day or two long intubation. She states she feels comfortable being discharged and will travel to [place] with a cryogenic transport driver when she is. Functional Status: Reports: Pain Controlled (improving pain control; no NSAIDs) , Tolerating Diet, Ambulating, Urinating Pain Score: 6 - Review of Systems General: Reports: No Symptoms Pulmonary: Reports: No Symptoms Cardiovascular: Reports: No Symptoms Gastrointestinal: Reports: No Symptoms Genitourinary: Reports: No Symptoms Musculoskeletal: Reports: No Symptoms Skin: Reports: No Symptoms Neurological: Reports: No Symptoms - General Info Date of Service: 10/29/18 - Patient Data Vital Signs - Most Recent: Last Vital Signs Temp 98.7 F 10/29/18 04:00 Pulse 99 10/29/18 04:00 Resp 16 10/29/18 04:00 BP 111/76 10/29/18 04:00 Pulse Ox 95 10/29/18 04:00 Weight - Most Recent: 87.997 kg Med Orders - Current: Current Medications Hydrocodone Bitart/Acetaminophen (Schriever 325-5 Mg) 1 tab PO Q4H PRN PRN Reason: Pain Last Admin: 10/28/18 23:59 Dose: 1 tab Hydrocodone Bitart/Acetaminophen (Schriever 325-5 Mg) 2 tab PO Q4H PRN PRN Reason: Pain (moderate 4-6) Last Admin: 10/29/18 08:26 Dose: 2 tab Bisacodyl (Dulcolax) 10 mg RECTAL ONETIME PRN PRN Reason: Constipation Diphenhydramine HCl (Benadryl) 25 mg IVPUSH Q6H PRN PRN Reason: Itching or Nausea Last Admin: 10/26/18 19:30 Dose: 25 mg Docusate Sodium (Colace) 100 mg PO BID MI Last Admin: 10/29/18 08:27 Dose: 100 mg Emollient Ointment (Lansinoh Hpa) 0 gm TOP ASDIRECTED PRN PRN Reason: Sore Nipples Lactated Ringer's (Ringers, Lactated) 1,000 mls @ 125 mls/hr IV ASDIRECTED MI Ondansetron HCl (Zofran) 4 mg IVPUSH Q4H PRN PRN Reason: Nausea/Vomiting Scopolamine (Transderm-Scop) 1.5 mg TRDERM Q72H PRN PRN Reason: Nausea/Vomiting Last Admin: 10/26/18 13:44 Dose: 1.5 mg Discontinued Medications Cefazolin Sodium/Dextrose (Ancef) Confirm Administered Dose 2 gm IV .STK-MED ONE Stop: 10/26/18 07:40 Citric Acid/Sodium Citrate (Bicitra Solution) 30 ml PO ONETIME ONE Stop: 10/26/18 07:34 Last Admin: 10/26/18 07:52 Dose: 30 ml Citric Acid/Sodium Citrate (Bicitra Solution) Confirm Administered Dose 30 ml .ROUTE .STK-MED ONE Stop: 10/26/18 07:48 Cyclobenzaprine HCl (Flexeril) 10 mg PO ONETIME ONE Stop: 10/27/18 19:43 Last Admin: 10/27/18 21:08 Dose: 10 mg Ephedrine Sulfate (Ephedrine Sulfate) Confirm Administered Dose 50 mg .ROUTE .STK-MED ONE Stop: 10/26/18 07:50 Fentanyl (Sublimaze) Confirm Administered Dose 100 mcg .ROUTE .STK-MED ONE Stop: 10/26/18 07:38 Cefazolin Sodium/Dextrose 2 gm (/ Premix) 50 mls @ 100 mls/hr IV ONETIME ONE Stop: 10/26/18 08:02 Lactated Ringer's (Ringers, Lactated) 1,000 mls @ 500 mls/hr IV BOLUS MI Last Admin: 10/26/18 07:40 Dose: 999 mls/hr Oxytocin/Sodium Chloride (Oxytocin 30 Unit/500 Ml-Ns) 30 unit in 500 mls @ 250 mls/hr IV TITRATE MI Midazolam HCl (Versed 1 Mg/Ml) Confirm Administered Dose 2 mg .ROUTE .STK-MED ONE Stop: 10/26/18 08:24 Morphine Sulfate (Morphine) Confirm Administered Dose 10 mg .ROUTE .STK-MED ONE Stop: 10/26/18 07:36 Morphine Sulfate (Duramorph Pf) Confirm Administered Dose 10 mg .ROUTE .STK-MED ONE Stop: 10/26/18 07:36 Naloxone HCl (Narcan) 0.1 mg IVPUSH ONETIME ONE Stop: 10/26/18 08:47 Octyl Cyanoacrylate (Dermabond Advance) Confirm Administered Dose 1 applic .ROUTE .STK-MED ONE Stop: 10/26/18 07:45 Ondansetron HCl (Zofran) Confirm Administered Dose 4 mg .ROUTE .STK-MED ONE Stop: 10/26/18 07:36 Oxycodone/Acetaminophen (Percocet 325-5 Mg) 1 tab PO Q4H PRN PRN Reason: Pain (moderate 4-6) Oxycodone/Acetaminophen (Percocet 325-5 Mg) 2 tab PO Q4H PRN PRN Reason: Pain (moderate 4-6) Oxytocin (Pitocin) Confirm Administered Dose 30 unit .ROUTE .STK-MED ONE Stop: 10/27/18 07:14 Phenylephrine HCl (Phenylephrine In Ns 100 Mcg/Ml) Confirm Administered Dose 1 mg .ROUTE .STK-MED ONE Stop: 10/27/18 07:07 Promethazine HCl (Phenergan) 25 mg IM ONETIME ONE Stop: 10/26/18 12:12 Last Admin: 10/26/18 12:30 Dose: 25 mg Sodium Chloride (Saline Flush) 10 ml FLUSH ASDIRECTED PRN PRN Reason: Keep Vein Open Sodium Chloride (Saline Flush) 2.5 ml FLUSH ASDIRECTED PRN PRN Reason: Keep Vein Open Sodium Chloride (Normal Saline) 10 ml IV ASDIRECTED PRN PRN Reason: IV Use - Interaction Infant Disposition, : in NICU in [place] Infant Interaction: Not Applicable Feeding: Other (see below) (will bottle feed when applicable) Support Person: - Recovery Exam Fundal Tone: Firm Fundal Level: 1 Fingerbreadths Below Umbilicus Fundal Placement: Midline Lochia Amount: Scant Lochia Color: Rubra/Red Perineum Description: Intact, Minimal Bruising/Swelling Episiotomy/Laceration: None Bladder Status: Voiding Urinary Elimination: Voided - Exam General: Alert, Oriented HEENT: Pupils Equal, Pupils Reactive, EOMI, Mucous Membr. Moist/[place] Neck: Supple Lungs: Clear to Auscultation, Normal Respiratory Effort Cardiovascular: Regular Rate, Regular Rhythm GI/Abdominal Exam: Normal Bowel Sounds, Soft, No Organomegaly, No Distention, No Mass, Tender Extremities: Normal Inspection, Normal Range of Motion, Non-Tender, No Pedal Edema, Normal Capillary Refill Skin: Warm, Dry, Intact Wound/Incisions: Healing Well Neurological: No New Focal Deficit Psy/Mental Status: Alert, Normal Affect, Normal Mood - Problem List & Annotations (1) delivery delivered SNOMED Code(s): 971010030 Code(s): O82 - ENCOUNTER FOR DELIVERY WITHOUT INDICATION Status: Acute Current Visit: Yes - Problem List Review Problem List Initiated/Reviewed/Updated: Yes - Assessment Assessment:: Janee is POD 3 for repeat LTCS. Her pain is slowly improving on her oral pain medications; She has left abdominal tenderness but remains afebrile. Her vital signs remain good and stable. No new labs; labs from 10/27 were reassuring and no new symptoms have arisen. - Plan Plan:: continue /postoperative cares discharge to home today (will travel to [place] to be with baby) continue to ambulate <Zaida Suarez - Last Filed: 10/29/18 09:29> - Patient Data Vital Signs - Most Recent: Last Vital Signs Temp 36.5 C 10/29/18 08:20 Pulse 79 10/29/18 08:20 Resp 17 10/29/18 08:20 BP 117/63 10/29/18 08:20 Pulse Ox 95 10/29/18 08:20 Med Orders - Current: Current Medications Hydrocodone Bitart/Acetaminophen (Schriever 325-5 Mg) 1 tab PO Q4H PRN PRN Reason: Pain Last Admin: 10/28/18 23:59 Dose: 1 tab Hydrocodone Bitart/Acetaminophen (Schriever 325-5 Mg) 2 tab PO Q4H PRN PRN Reason: Pain (moderate 4-6) Last Admin: 10/29/18 08:26 Dose: 2 tab Bisacodyl (Dulcolax) 10 mg RECTAL ONETIME PRN PRN Reason: Constipation Diphenhydramine HCl (Benadryl) 25 mg IVPUSH Q6H PRN PRN Reason: Itching or Nausea Last Admin: 10/26/18 19:30 Dose: 25 mg Docusate Sodium (Colace) 100 mg PO BID MI Last Admin: 10/29/18 08:27 Dose: 100 mg Emollient Ointment (Lansinoh Hpa) 0 gm TOP ASDIRECTED PRN PRN Reason: Sore Nipples Lactated Ringer's (Ringers, Lactated) 1,000 mls @ 125 mls/hr IV ASDIRECTED MI Ondansetron HCl (Zofran) 4 mg IVPUSH Q4H PRN PRN Reason: Nausea/Vomiting Scopolamine (Transderm-Scop) 1.5 mg TRDERM Q72H PRN PRN Reason: Nausea/Vomiting Last Admin: 10/26/18 13:44 Dose: 1.5 mg Discontinued Medications Cefazolin Sodium/Dextrose (Ancef) Confirm Administered Dose 2 gm IV .STK-MED ONE Stop: 10/26/18 07:40 Citric Acid/Sodium Citrate (Bicitra Solution) 30 ml PO ONETIME ONE Stop: 10/26/18 07:34 Last Admin: 10/26/18 07:52 Dose: 30 ml Citric Acid/Sodium Citrate (Bicitra Solution) Confirm Administered Dose 30 ml .ROUTE .STK-MED ONE Stop: 10/26/18 07:48 Cyclobenzaprine HCl (Flexeril) 10 mg PO ONETIME ONE Stop: 10/27/18 19:43 Last Admin: 10/27/18 21:08 Dose: 10 mg Ephedrine Sulfate (Ephedrine Sulfate) Confirm Administered Dose 50 mg .ROUTE .STK-MED ONE Stop: 10/26/18 07:50 Fentanyl (Sublimaze) Confirm Administered Dose 100 mcg .ROUTE .STK-MED ONE Stop: 10/26/18 07:38 Cefazolin Sodium/Dextrose 2 gm (/ Premix) 50 mls @ 100 mls/hr IV ONETIME ONE Stop: 10/26/18 08:02 Lactated Ringer's (Ringers, Lactated) 1,000 mls @ 500 mls/hr IV BOLUS [facility] Last Admin: 10/26/18 07:40 Dose: 999 mls/hr Oxytocin/Sodium Chloride (Oxytocin 30 Unit/500 Ml-Ns) 30 unit in 500 mls @ 250 mls/hr IV TITRATE MI Midazolam HCl (Versed 1 Mg/Ml) Confirm Administered Dose 2 mg .ROUTE .STK-MED ONE Stop: 10/26/18 08:24 Morphine Sulfate (Morphine) Confirm Administered Dose 10 mg .ROUTE .STK-MED ONE Stop: 10/26/18 07:36 Morphine Sulfate (Duramorph Pf) Confirm Administered Dose 10 mg .ROUTE .STK-MED ONE Stop: 10/26/18 07:36 Naloxone HCl (Narcan) 0.1 mg IVPUSH ONETIME ONE Stop: 10/26/18 08:47 Octyl Cyanoacrylate (Dermabond Advance) Confirm Administered Dose 1 applic .ROUTE .STK-MED ONE Stop: 10/26/18 07:45 Ondansetron HCl (Zofran) Confirm Administered Dose 4 mg .ROUTE .STK-MED ONE Stop: 10/26/18 07:36 Oxycodone/Acetaminophen (Percocet 325-5 Mg) 1 tab PO Q4H PRN PRN Reason: Pain (moderate 4-6) Oxycodone/Acetaminophen (Percocet 325-5 Mg) 2 tab PO Q4H PRN PRN Reason: Pain (moderate 4-6) Oxytocin (Pitocin) Confirm Administered Dose 30 unit .ROUTE .STK-MED ONE Stop: 10/27/18 07:14 Phenylephrine HCl (Phenylephrine In Ns 100 Mcg/Ml) Confirm Administered Dose 1 mg .ROUTE .STK-MED ONE Stop: 10/27/18 07:07 Promethazine HCl (Phenergan) 25 mg IM ONETIME ONE Stop: 10/26/18 12:12 Last Admin: 10/26/18 12:30 Dose: 25 mg Sodium Chloride (Saline Flush) 10 ml FLUSH ASDIRECTED PRN PRN Reason: Keep Vein Open Sodium Chloride (Saline Flush) 2.5 ml FLUSH ASDIRECTED PRN PRN Reason: Keep Vein Open Sodium Chloride (Normal Saline) 10 ml IV ASDIRECTED PRN PRN Reason: IV Use - Problem List & Annotations (1) delivery delivered SNOMED Code(s): 809498377 Code(s): O82 - ENCOUNTER FOR DELIVERY WITHOUT INDICATION Status: Acute Current Visit: Yes - Problem List Review Problem List Initiated/Reviewed/Updated: Yes - Assessment Assessment:: POD#3 patient was seen and examined, discharge precautions given.
== END 2018-10-29 10:45 | disposition home or self-care (01) | DRG 788 ==
LOC: MW.OBCHECK 07:08 → MW.OB 07:32 → OBSVTOIN 07:33 → MW.OB 07:35
PROVIDERS: ADMIT Obstetrics & Gynecology; ATTEND Obstetrics & Gynecology
PROC: 0DNW0ZZ Release Peritoneum, Open Approach (ICD-10-PCS; principal; 2018-10-26)
PROC: 10D00Z1 Extraction of Products of Conception, Low, Open Approach (ICD-10-PCS; principal; 2018-10-26)
PROC: 6A550ZT Pheresis of Cord Blood Stem Cells, Single (ICD-10-PCS; principal; 2018-10-26)
DX: O34.211 Maternal care for low transverse scar from previous cesarean delivery (principal); N85.8 Other specified noninflammatory disorders of uterus; Z3A.36 36 weeks gestation of pregnancy; Z37.0 Single live birth; O99.62 Diseases of the digestive system complicating childbirth; K21.9 Gastro-esophageal reflux disease without esophagitis; O99.52 Diseases of the respiratory system complicating childbirth; J45.909 Unspecified asthma, uncomplicated; O99.214 Obesity complicating childbirth; E66.9 Obesity, unspecified; O99.89 Other specified diseases and conditions complicating pregnancy, childbirth and the puerperium; N73.6 Female pelvic peritoneal adhesions (postinfective); Z79.899 Other long term (current) drug therapy; Z88.2 Allergy status to sulfonamides; Z87.11 Personal history of peptic ulcer disease
CPT/HCPCS: 36415; 59025; 82803; 85014; 85018; 85027; 86850; 86900; 86901; A9270-GY; C1765; J0690; J1200; J2250; J2270; J2370; J2405; J2550; J2590; J3010; J7120

== ENCOUNTER 2019-09-16 21:11 | Emergency (ER) | payer BC, OTHER ==
[2019-09-16] MEDS ORDERED: Sodium Chloride 0.9% 10 ML Syringe FLUSH PRN (22:01)
[2019-09-16] MEDS ORDERED: Ondansetron 4 MG/2 ML SDV IVPUSH ONE (22:01)
[2019-09-16] MEDS ORDERED: Sodium Chloride 0.9% 2.5 ML Syringe FLUSH PRN (22:01)
[2019-09-16] MEDS ORDERED: Morphine 4 MG/ML Syringe IVPUSH ONE (22:01)
[2019-09-16] MEDS ORDERED: Sodium Chloride 0.9% 1,000 ML IV ONE (22:01)
[2019-09-16 23:05] LABS: BLOOD UREA NITROGEN,BUN 11 mg/dL (7.0-18.0); CARBON DIOXIDE,CO2 24.7 mmol/L (21.0-32.0); CHLORIDE,CL 104 mmol/L (98-107); GLUCOSE RANDOM 88 mg/dL (74-106); POTASSIUM,K 3.8 mmol/L (3.5-5.1); SODIUM,NA 140 mmol/L (136-145)
--- NOTE | 2019-09-16 23:36 | US ---
INDICATION: Pelvic pain TECHNIQUE: Ultrasound pelvis transvaginal only. COMPARISON: None FINDINGS: Uterus: 8.8 centimeter x 3.3 centimeter x 4.3 centimeter normal echotexture of the myometrium. No masses. Endometrium: The endometrium measures 4 mm in thickness. No sign of endometrial mass or fluid. Right ovary: 1.7 centimeter x 2.3 centimeter. No ovarian or adnexal masses. 8 millimeter simple cyst. Normal arterial and venous blood flow. Left ovary: 2.8 centimeter x 2.5 centimeter x 1.6 centimeter. No ovarian or adnexal masses. Multiple cysts with the largest measuring 1.3 centimeters. Normal arterial and venous blood flow. Cul-de-sac: No significant free fluid. IMPRESSION: Unremarkable pelvic ultrasound. Dictated by Gary Yousif MD @ 09/16/2019 11:33:41 PM Dictated by: Gary Yousif MD @ 09/16/2019 23:33:46 (Electronically Signed)
[2019-09-17] MEDS ORDERED: Ketorolac 30 MG/ML SDV IVPUSH ONE (00:50)
--- NOTE | 2019-09-17 01:11 | EDM.PDOC ---
ED HPI GENERAL MEDICAL PROBLEM - General Chief Complaint: Abdominal Pain Stated Complaint: ABD PAIN Time Seen by Provider: 09/16/19 21:34 - History of Present Illness INITIAL COMMENTS - FREE TEXT/NARRATIVE: Pt with pmh of cysts on her ovaries(worse on the left) currently on OCPs presents with left adnexal pain today. Pt reports intermittent left and right pelvic pain for the last 8-9 months. Pt denies vaginal bleeding or discharge. No other symptoms. abdominal pain Pain Score (Numeric/FACES): 6 - Related Data Allergies Allergy/AdvReac Type Severity Reaction Status Date / Time doxycycline Allergy Vomiting Verified 09/16/19 21:37 Sulfa (Sulfonamide Allergy Vomiting Verified 09/16/19 21:37 Antibiotics) Home Meds: Home Meds Acetaminophen [Tylenol Extra Strength] 1,000 mg PO Q6H PRN 03/21/19 [History] Cetirizine [ZyrTEC] 10 mg PO DAILY PRN 03/21/19 [History] Escitalopram Oxalate [Lexapro] 5 mg PO DAILY 03/21/19 [History] Montelukast [Singulair] 10 mg PO DAILY 03/21/19 [History] Norgestimate-Ethinyl Estradiol [Ortho Tri-Cyclen 28 Tablet] 1 tab PO DAILY 03/21 [History] Omeprazole 20 mg PO DAILY 03/21/19 [History] Pseudoephedrine HCl [Sudafed] 30 mg PO DAILY PRN 03/21/19 [History] diphenhydrAMINE [Benadryl] 25 mg PO TID PRN 03/21/19 [History] valACYclovir HCl [Valtrex] 500 mg PO DAILY PRN 03/21/19 [History] Past Medical History HEENT History: Reports: Other (See Below) Other HEENT History: wears glasses Cardiovascular History: Reports: None Respiratory History: Reports: Asthma Other Respiratory History: Allergy induced asthma- rarely uses inhaler Gastrointestinal History: Reports: GERD, Hiatal Hernia Genitourinary History: Reports: None [employer] History: Reports: Musculoskeletal History: Reports: Back Pain, Chronic, Fracture Other Musculoskeletal History: hx of fx pinky Neurological History: Reports: Concussion, Head Trauma, Other (See Below) Other Neuro History: head injury as a child- required stitches, hx of motion sickness Psychiatric History: Reports: None Endocrine/Metabolic History: Reports: Obesity/BMI 30+ Insulin Pump Model and Porter Luggage: none Hematologic History: Reports: None Immunologic History: Reports: None Oncologic (Cancer) History: Reports: None Dermatologic History: Reports: None - Infectious Disease History Infectious Disease History: Reports: None - Past Surgical History Head Surgeries/Procedures: Reports: None GI Surgical History: Reports: Appendectomy Female Surgical History: Reports: Breast Implant, Section Other Female Surgeries/Procedures: breast augmentation Musculoskeletal Surgical History: Reports: Other (See Below) Other Musculoskeletal Surgeries/Procedures:: excision of lesion from abdomen Social & Family History - Family History Family Medical History: Noncontributory HEENT: Reports: None Cardiac: Reports: CAD, High Cholesterol, MS Respiratory: Reports: None GI: Reports: None : Reports: None OBGYN: Reports: Neurological: Reports: CVA Psychiatric: Reports: Other (See Below) Other Psychiatric Family History: addiction to pain meds Endocrine/Metabolic: Reports: None Hematologic: Reports: None Immunologic: Reports: Other (See Below) Other Immunologic Family History: [place] Dermatologic: Reports: None Oncologic: Reports: Esophageal - Tobacco Use Smoking Status *Q: Never Smoker - Caffeine Use Caffeine Use: Reports: Coffee - Recreational Drug Use Recreational Drug Use: No ED ROS GENERAL - Review of Systems Review Of Systems: See Below Constitutional: Denies: Fever, Chills Respiratory: Reports: No Symptoms Cardiovascular: Reports: No Symptoms Endocrine: Reports: No Symptoms GI/Abdominal: Reports: Abdominal Pain, Nausea. Denies: Vomiting : Reports: Pain. Denies: Dysuria, Urgency Neurological: Reports: No Symptoms ED EXAM, GI/ABD - Physical Exam Exam: See Below Exam Limited By: No Limitations General Appearance: Alert, WD/WN, No Apparent Distress Head: Atraumatic, Normocephalic Respiratory/Chest: No Respiratory Distress, Lungs Clear, Normal Breath Sounds Cardiovascular: Regular Rate, Rhythm, No Murmur GI/Abdominal Exam: Soft, Non-Tender, No Distention (Female) Exam: Adnexal Tenderness (external) Neurological: Alert, Oriented, Normal Cognition Course - Vital Signs Last Recorded V/S: Last Vital Signs Temp 97.3 F 09/17/19 01:08 Pulse 56 L 09/17/19 01:08 Resp 16 09/17/19 01:08 BP 110/83 09/17/19 01:08 Pulse Ox 98 09/17/19 01:08 - Orders/Labs/Meds Orders: Active Orders 24 hr Category Date Time Status Saline Lock Insert [OM.PC] Stat Oth 09/16/19 22:01 Ordered Labs: Laboratory Tests 09/16/19 09/16/19 09/16/19 Range/Units 21:30 21:30 22:35 WBC 7.74 (4.0-11.0) K/uL RBC 4.59 (4.30-5.90) M/uL Hgb 14.1 (12.0-16.0) g/dL Hct 41.0 (36.0-46.0) % MCV 89.3 (80.0-98.0) fL MCH 30.7 (27.0-32.0) pg MCHC 34.4 (31.0-37.0) g/dL RDW Std Deviation 40.3 (28.0-62.0) fl RDW Coeff of Wilfred 13 (11.0-15.0) % Plt Count 320 (150-400) K/uL MPV 9.60 (7.40-12.00) fL Add Manual Diff YES Neutrophils % (Manual) 29 L (48.0-80.0) % Lymphocytes % (Manual) 63 H (16.0-40.0) % Monocytes % (Manual) 7 (0.0-15.0) % Eosinophils % (Manual) 1 (0.0-7.0) % Nucleated RBC % 0.0 /100WBC Absolute Seg Neuts 2.2 (1.4-5.7) Lymphocytes # (Manual) 4.9 H (0.6-2.4) Monocytes # (Manual) 0.5 (0.0-0.8) Eosinophils # (Manual) 0.1 (0.0-0.7) Nucleated RBCs # 0 K/uL Sodium (136-145) mmol/L Potassium (3.5-5.1) mmol/L Chloride (98-107) mmol/L Carbon Dioxide (21.0-32.0) mmol/L BUN (7.0-18.0) mg/dL Creatinine (0.6-1.0) mg/dL Est Cr Clr Drug Dosing mL/min Estimated GFR (MDRD) ml/min Glucose (74-106) mg/dL Calcium (8.5-10.1) mg/dL Total Bilirubin (0.2-1.0) mg/dL AST (15-37) IU/L ALT (14-63) IU/L Alkaline Phosphatase (46-116) U/L Total Protein (6.4-8.2) g/dL Albumin (3.4-5.0) g/dL Globulin (2.6-4.0) g/dL Albumin/Globulin Ratio (0.9-1.6) Urine Color YELLOW Urine Appearance CLEAR Urine pH 6.0 (5.0-8.0) Ur Specific [place] 1.010 (1.001-1.035) Urine Protein NEGATIVE (NEGATIVE) mg/dL Urine Glucose (UA) NEGATIVE (NEGATIVE) mg/dL Urine Ketones NEGATIVE (NEGATIVE) mg/dL Urine Occult Blood NEGATIVE (NEGATIVE) Urine Nitrite NEGATIVE (NEGATIVE) Urine Bilirubin NEGATIVE (NEGATIVE) Urine Urobilinogen 0.2 (<2.0) EU/dL Ur Leukocyte Esterase NEGATIVE (NEGATIVE) Urine HCG, Qual NEGATIVE (NEGATIVE) 09/16/19 Range/Units 22:35 WBC (4.0-11.0) K/uL RBC (4.30-5.90) M/uL Hgb (12.0-16.0) g/dL Hct (36.0-46.0) % MCV (80.0-98.0) fL MCH (27.0-32.0) pg MCHC (31.0-37.0) g/dL RDW Std Deviation (28.0-62.0) fl RDW Coeff of Wilfred (11.0-15.0) % Plt Count (150-400) K/uL MPV (7.40-12.00) fL Add Manual Diff Neutrophils % (Manual) (48.0-80.0) % Lymphocytes % (Manual) (16.0-40.0) % Monocytes % (Manual) (0.0-15.0) % Eosinophils % (Manual) (0.0-7.0) % Nucleated RBC % /100WBC Absolute Seg Neuts (1.4-5.7) Lymphocytes # (Manual) (0.6-2.4) Monocytes # (Manual) (0.0-0.8) Eosinophils # (Manual) (0.0-0.7) Nucleated RBCs # K/uL Sodium 140 (136-145) mmol/L Potassium 3.8 (3.5-5.1) mmol/L Chloride 104 (98-107) mmol/L Carbon Dioxide 24.7 (21.0-32.0) mmol/L BUN 11 (7.0-18.0) mg/dL Creatinine 0.7 (0.6-1.0) mg/dL Est Cr Clr Drug Dosing 111.16 mL/min Estimated GFR (MDRD) > 60.0 ml/min Glucose 88 (74-106) mg/dL Calcium 8.9 (8.5-10.1) mg/dL Total Bilirubin 0.5 (0.2-1.0) mg/dL AST 16 (15-37) IU/L ALT 52 (14-63) IU/L Alkaline Phosphatase 130 H (46-116) U/L Total Protein 7.6 (6.4-8.2) g/dL Albumin 3.7 (3.4-5.0) g/dL Globulin 3.9 (2.6-4.0) g/dL Albumin/Globulin Ratio 0.9 (0.9-1.6) Urine Color Urine Appearance Urine pH (5.0-8.0) Ur Specific [place] (1.001-1.035) Urine Protein (NEGATIVE) mg/dL Urine Glucose (UA) (NEGATIVE) mg/dL Urine Ketones (NEGATIVE) mg/dL Urine Occult Blood (NEGATIVE) Urine Nitrite (NEGATIVE) Urine Bilirubin (NEGATIVE) Urine Urobilinogen (<2.0) EU/dL Ur Leukocyte Esterase (NEGATIVE) Urine HCG, Qual (NEGATIVE) Meds: Medications Discontinued Medications Generic Name Dose Route Start Last Admin Trade Name Freq PRN Reason Stop Dose Admin Sodium Chloride 1,000 mls @ 999 mls/hr 09/16/19 22:01 09/16/19 22:35 Normal Saline IV 09/16/19 23:01 999 mls/hr BOLUS ONE Administration Ketorolac Tromethamine 30 mg 09/17/19 00:50 09/17/19 01:02 Toradol IVPUSH 09/17/19 00:51 30 mg ONETIME ONE Administration Morphine Sulfate 4 mg 09/16/19 22:01 09/16/19 23:18 Morphine IVPUSH 09/16/19 22:02 4 mg ONETIME ONE Administration Ondansetron HCl 4 mg 09/16/19 22:01 09/16/19 23:17 Zofran IVPUSH 09/16/19 22:02 4 mg ONETIME ONE Administration Sodium Chloride 10 ml 09/16/19 22:01 09/16/19 23:19 Saline Flush FLUSH 10 ml ASDIRECTED PRN Administration Keep Vein Open Sodium Chloride 2.5 ml 09/16/19 22:01 09/16/19 23:19 Saline Flush FLUSH 2.5 ml ASDIRECTED PRN Administration Keep Vein Open - Re-Assessments/Exams Free Text/Narrative Re-Assessment/Exam: 09/17/19 01:06 VS stable and PE benign. ED work up with labs and US clinically unremarkable. Pt provided with us report and will follow up. Pt significantly improved with ED therapy and comfortable with discharge. Toradol and norco prescribed. opoid precautions discussed. Strict return precautions discussed should symptoms worsen or any concerns arise. Departure - Departure Time of Disposition: 01:10 Disposition: Home, Self-Care 01 Condition: Good Clinical Impression: Pelvic pain - Discharge Information Instructions: Pelvic Pain, Female, Ovarian Cyst, [id number] Referrals: Lexy Baez [employer] [Primary Care Provider] - Forms: ED Department Discharge Additional Instructions: The following information is given to patients seen in the emergency department who are being discharged to home. This information is to outline your options for follow-up care. We provide all patients seen in our emergency department with a follow-up referral. The need for follow-up, as well as the timing and circumstances, are variable depending upon the specifics of your emergency department visit. If you don't have a primary care physician on staff, we will provide you with a referral. We always advise you to contact your personal physician following an emergency department visit to inform them of the circumstance of the visit and for follow-up with them and/or the need for any referrals to a consulting specialist. The emergency department will also refer you to a specialist when appropriate. This referral assures that you have the opportunity for follow-up care with a specialist. All of these measure are taken in an effort to provide you with optimal care, which includes your follow-up. Under all circumstances we always encourage you to contact your private physician who remains a resource for coordinating your care. When calling for follow-up care, please make the office aware that this follow-up is from your recent emergency room visit. If for any reason you are refused follow-up, please contact the [facility] Emergency Department at and asked to speak to the emergency department charge nurse. [facility] [address], [place] [address] [facility] [address] [place] [address] [facility] [address] [place] [address] Sepsis Event Note - Evaluation Sepsis Screening Result: No Definite Risk - Focused Exam Vital Signs: Vital Signs Temp Pulse Resp BP Pulse Ox 09/17/19 01:08 97.3 F 56 L 16 110/83 98 09/17/19 00:02 98.1 F 60 18 114/81 100 09/16/19 21:37 97.3 F 86 18 142/87 H 98 Date Exam was Performed: 09/17/19 Time Exam was Performed: 08:27 - My Orders Last 24 Hours: My Active Orders 09/16/19 22:01 Saline Lock Insert [OM.PC] Stat - Assessment/Plan Last 24 Hours: My Active Orders 09/16/19 22:01 Saline Lock Insert [OM.PC] Stat
== END 2019-09-17 01:25 | disposition home or self-care (01) ==
LOC: MW.ED 21:11
DX: R10.2 Pelvic and perineal pain (principal); R11.0 Nausea; J45.909 Unspecified asthma, uncomplicated; K21.9 Gastro-esophageal reflux disease without esophagitis; E66.9 Obesity, unspecified; Z68.24 Body mass index [BMI] 24.0-24.9, adult; Z88.2 Allergy status to sulfonamides; Z88.1 Allergy status to other antibiotic agents; Z79.899 Other long term (current) drug therapy
CPT/HCPCS: 36415; 76830; 80053; 81003; 81025; 85025; 96361; 96374; 96375; 99284; J1885; J2270; J2405; J7030; 99283

== ENCOUNTER 2020-08-21 07:47 | Day surgery (SDC) | payer BC ==
[2020-08-20] MEDS: Ampicillin 1 GM in Sodium Chloride 0.9% 50 ML IV SCH ×2 (17:44→23:59)
[2020-08-20] MEDS: Ketorolac 30 MG/ML SDV IM SCH ×2 (17:46→23:58)
[2020-08-20] MEDS: Azithromycin 500 MG in Sodium Chloride 0.9% 250 ML IV SCH (18:15)
[2020-08-21] MEDS: Ketorolac 30 MG/ML SDV IM SCH (05:53)
[2020-08-21] MEDS: Ampicillin 1 GM in Sodium Chloride 0.9% 50 ML IV SCH ×4 (05:56→23:23)
[2020-08-21] MEDS: Lactated Ringers 1,000 ML IV SCH (06:41)
[~2020-08-21 07:47] MED LIST: Acetaminophen 325 MG Tab PO PRN; Ondansetron 4 MG/2 ML SDV IVPUSH PRN; Sodium Chloride 0.9% 10 ML SDV IV PRN; Sodium Chloride 0.9% 10 ML Syringe FLUSH PRN; Sodium Chloride 0.9% 2.5 ML Syringe FLUSH PRN; Tranexamic Acid 1,000 MG in Sodium Chloride 0.9% 100 ML IV PRN; hydrOXYzine Pamoate 25 MG Cap PO PRN
[2020-08-21] MEDS ORDERED: ePHEDrine 50 MG/ML SDV ONE (07:56)
[2020-08-21] MEDS ORDERED: Ondansetron 4 MG/2 ML SDV ONE (07:56)
[2020-08-21] MEDS ORDERED: Scopolamine 1.5 MG Transdermal Patch ONE (07:56)
[2020-08-21] MEDS ORDERED: Succinylcholine/Sod PF 100 MG/5 ML SYRINGE IV ONE (08:12)
--- NOTE | 2020-08-21 09:09 | PCM.OPNOTE ---
- General Post-Op/Procedure Note Date of Surgery/Procedure: 08/21/20 Operative Procedure(s): Cervical cerclage--Hope's Findings: Cervix dilated about 1-2 cm, membranes not visible this morning Pre Op Diagnosis: Incompetent cervix Post-Op Diagnosis: Same Anesthesia Technique: Spinal Primary Surgeon: Quynh Kwok Snout Puller: Zaida Suarez Fluid Replacement, Intraop: 1,000 EBL in mLs: 30 Complications: none known Condition: Good Free Text/Narrative:: Dictation [id number] Intake & Output 08/20/20 08/21/20 08/21/20 22:59 06:59 14:59 Output Total 350 Balance -350
--- NOTE | 2020-08-21 11:11 | PCM.POSTAN ---
POST ANESTHESIA ASSESSMENT - MENTAL STATUS Mental Status: Alert, Oriented - VITAL SIGNS Vital Signs: Last Vital Signs Temp 36.4 C 08/21/20 08:43 Pulse 80 08/21/20 09:16 Resp 14 08/21/20 09:16 BP 97/53 L 08/21/20 09:16 Pulse Ox 99 08/21/20 09:16 - RESPIRATORY Respiratory Status: Respiratory Rate WNL, Airway Patent, O2 Saturation Stable - CARDIOVASCULAR CV Status: Pulse Rate WNL, Blood Pressure Stable - GASTROINTESTINAL GI Status: No Symptoms - PAIN Pain Score: 0 - POST OP HYDRATION Hydration Status: Adequate & Stable - OBSERVATIONS Free Text/Narrative:: No anesthesia problems
--- NOTE | 2020-08-21 11:17 | PCM.PREANE ---
Preanesthetic Assessment - Anesthesia/Transfusion/Family Hx Anesthesia History: Prior Anesthesia Without Reaction Other Type of Anesthesia Reaction Comment: PONV Family History of Anesthesia Reaction: No Transfusion History: No Prior Transfusion(s) Intubation History: Unknown - Review of Systems General: No Symptoms Pulmonary: No Symptoms Cardiovascular: No Symptoms Gastrointestinal: No Symptoms Neurological: No Symptoms Other: Reports: None - Physical Assessment Vital Signs: Last Vital Signs Temp 36.4 C 08/21/20 08:43 Pulse 80 08/21/20 09:16 Resp 14 08/21/20 09:16 BP 97/53 L 08/21/20 09:16 Pulse Ox 99 08/21/20 09:16 Height: 5 ft 7 in Weight: 77.564 kg ASA Class: 2 Mental Status: Alert & Oriented x3 Airway Class: Mallampati = 2 Dentition: Reports: Normal Dentition Thyro-Mental Finger Breadths: 3 Mouth Opening Finger Breadths: 3 ROM/Head Extension: Full Lungs: Clear to Auscultation, Normal Respiratory Effort Cardiovascular: Regular Rate, Regular Rhythm - Lab Values: Laboratory Last Values WBC 12.67 K/uL (4.0-11.0) H 08/20/20 17:15 RBC 4.22 M/uL (4.30-5.90) L 08/20/20 17:15 Hgb 13.2 g/dL (12.0-16.0) 08/20/20 17:15 Hct 38.7 % (36.0-46.0) 08/20/20 17:15 MCV 91.7 fL (80.0-98.0) 08/20/20 17:15 MCH 31.3 pg (27.0-32.0) 08/20/20 17:15 MCHC 34.1 g/dL (31.0-37.0) 08/20/20 17:15 RDW Std Deviation 43.9 fl (28.0-62.0) 08/20/20 17:15 RDW Coeff of Wilfred 13 % (11.0-15.0) 08/20/20 17:15 Plt Count 299 K/uL (150-400) 08/20/20 17:15 MPV 9.90 fL (7.40-12.00) 08/20/20 17:15 Nucleated RBC % 0.0 /100WBC 08/20/20 17:15 Nucleated RBCs # 0 K/uL 08/20/20 17:15 SARS-CoV-2 RNA (DEE) NEGATIVE (NEGATIVE) 08/20/20 16:55 - Allergies Allergies/Adverse Reactions: Allergies Allergy/AdvReac Type Severity Reaction Status Date / Time doxycycline Allergy Vomiting Verified 09/16/19 21:37 Sulfa (Sulfonamide Allergy Vomiting Verified 09/16/19 21:37 Antibiotics) - Blood Blood Available: No - Anesthesia Plan Pre-Op Medication Ordered: None - Acknowledgements Anesthesia Type Planned: Spinal (general anesthesia back-up plan) Pt an Appropriate Candidate for the Planned Anesthesia: Yes Alternatives and Risks of Anesthesia Discussed w Pt/Guardian: Yes Pt/Guardian Understands and Agrees with Anesthesia Plan: Yes PreAnesthesia Questionnaire HEENT History: Reports: Other (See Below) Other HEENT History: wears glasses Cardiovascular History: Reports: None Respiratory History: Reports: Asthma Other Respiratory History: Allergy induced asthma- rarely uses inhaler Gastrointestinal History: Reports: GERD, Hiatal Hernia Genitourinary History: Reports: None STEERSMAN History: Reports: Musculoskeletal History: Reports: Back Pain, Chronic, Fracture Other Musculoskeletal History: hx of fx pinky Neurological History: Reports: Concussion, Head Trauma, Other (See Below) Other Neuro History: head injury as a child- required stitches, hx of motion sickness Psychiatric History: Reports: None Endocrine/Metabolic History: Reports: Obesity/BMI 30+ Hematologic History: Reports: None Immunologic History: Reports: None Oncologic (Cancer) History: Reports: None Dermatologic History: Reports: None - Infectious Disease History Infectious Disease History: Reports: None - Past Surgical History Other Musculoskeletal Surgeries/Procedures:: Laparotomy excision of lesion from abdomen (adheolysis ?) - SUBSTANCE USE Tobacco Use Status *Q: Never Tobacco User Second Hand Smoke Exposure: No Recreational Drug Use History: No - HOME MEDS Home Medications: Home Meds Acetaminophen [Tylenol Extra Strength] 1,000 mg PO Q6H PRN 03/21/19 [History] Cetirizine [ZyrTEC] 10 mg PO DAILY PRN 03/21/19 [History] Escitalopram Oxalate [Lexapro] 5 mg PO DAILY 03/21/19 [History] Omeprazole 20 mg PO DAILY 03/21/19 [History] Pseudoephedrine HCl [Sudafed] 30 mg PO DAILY PRN 03/21/19 [History] diphenhydrAMINE [Benadryl] 25 mg PO TID PRN 03/21/19 [History] - CURRENT (IN HOUSE) MEDS Current Meds: Current Medications Acetaminophen (Tylenol) 650 mg PO Q4H PRN PRN Reason: mild pain and fever Hydroxyzine Pamoate (Vistaril) 100 mg PO BEDTIME PRN PRN Reason: Anxiety Last Admin: 08/20/20 19:37 Dose: 100 mg Documented by: Tranexamic Acid 1,000 mg/ (Sodium Chloride) 110 mls @ 660 mls/hr IV ONETIME PRN PRN Reason: Bleeding Lactated Ringer's (Ringers, Lactated) 1,000 mls @ 75 mls/hr IV ASDIRECTED [facility] Last Admin: 08/21/20 06:41 Dose: 75 mls/hr Documented by: Ampicillin Sodium 1 gm/ Sodium (Chloride) 50 mls @ 100 mls/hr IV Q6H [facility] Last Admin: 08/21/20 05:56 Dose: 100 mls/hr Documented by: Azithromycin 500 mg/ Sodium (Chloride) 250 mls @ 250 mls/hr IV Q24H [facility] Last Admin: 08/20/20 18:15 Dose: 250 mls/hr Documented by: Ketorolac Tromethamine (Toradol) 30 mg IVPUSH Q6H [facility] Ondansetron HCl (Zofran) 4 mg IVPUSH Q6H PRN PRN Reason: Nausea/Vomiting Sodium Chloride (Saline Flush) 10 ml FLUSH ASDIRECTED PRN PRN Reason: Keep Vein Open Sodium Chloride (Saline Flush) 2.5 ml FLUSH ASDIRECTED PRN PRN Reason: Keep Vein Open Sodium Chloride (Normal Saline) 10 ml IV ASDIRECTED PRN PRN Reason: IV Use Discontinued Medications Ephedrine Sulfate (Ephedrine Sulfate) Confirm Administered Dose 50 mg .ROUTE .[facility] ONE Stop: 08/21/20 07:57 Ketorolac Tromethamine (Toradol) [address] [facility] Last Admin: 08/21/20 05:53 Dose: 30 mg Documented by: Ondansetron HCl (Zofran) Confirm Administered Dose 4 mg .ROUTE .[facility] ONE Stop: 08/21/20 07:57 Scopolamine (Transderm-Scop) Confirm Administered Dose 1.5 mg .ROUTE .[facility] ONE Stop: 08/21/20 07:57
--- NOTE | 2020-08-21 11:47 | OR ---
SURGEON: Quynh Kwok M.D. DATE OF PROCEDURE: 08/21/2020 PREOPERATIVE DIAGNOSIS: Incompetent cervix. POSTOPERATIVE DIAGNOSIS: Incompetent cervix. PROCEDURE: Hope cervical cerclage. PRIMARY SURGEON: Quynh Kwok MD CONCRETE SPREADER: Zaida Suarez MD ANESTHESIA: Spinal. ESTIMATED BLOOD LOSS: 30 mL. FLUIDS: 1000 mL of crystalloid. COMPLICATIONS: None known. FINDINGS: Cervix is dilated 1 to 2 cm today, membranes are no longer visible as they were yesterday. DISPOSITION: The patient to PACU in stable condition. heart tones in the 150s with active fetus on ultrasound. PROCEDURE DETAILS: Janee is a 34-year-old, G5, P 2-0-2-2, at 21-6/7 weeks' gestational age, who presented to clinic yesterday with feelings of increasing pressure. It had been noted a week before in her anatomy sono that she had a shortened cervix at 1.8 cm incidentally. She was initiated on vaginal progesterone and with this symptomatology was re-evaluated yesterday. The cervix was now only 7 mm. On speculum exam, the cervix appeared to be approximately 2 cm dilated with membranes visible. They were not bulging or hourglassing, but they were visible at the mid os. Given this finding, discussed the case with a perinatologist in [place] and opted to admit the patient overnight for observation. She was placed in Trendelenburg positioning, received Toradol via IM and prophylactic antibiotics in the form of azithromycin and ampicillin. She remained stable overnight with no apparent progression and therefore option to proceed with emergency rescue cerclage has been discussed with herself and her . Risks of procedure have been discussed with them. They agreed to proceed. The patient was taken to the operating room where she underwent spinal anesthetic. She was then placed in a modified dorsal lithotomy position, was prepped and draped in usual sterile fashion. I did the vaginal prep myself. Time-out was performed. Weighted speculum was introduced in the vagina as well as sidewall retractors. Anterior lip of the cervix was grasped gently with the ring forceps. The cervix no longer is visibly dilated today and the membranes are not visible. The anterior lip of cervix was tented downward using a 0 Ethibond. Was able to place a pursestring suture along the cervix beginning at the 12 o'clock position, moving to the 9 o'clock position, 6 o'clock position, 3 o'clock position, and again the 12 o'clock position. A second suture was able to be placed in a similar fashion directly cephalad to the first allowing for better closure more close to the internal os. These sutures were now gently tied down with a finger gently placed in the internal os to make sure that it was adequately tied down, but not too tight. Both sutures were tied down. Hemostasis appeared evident. Sponge count and instrument and needle count were correct. The patient has tolerated the procedure well overall. She will go to PACU to be monitored and then will remain on Labor and Delivery for the next 24 hours for observation and continued IV antibiotics and Toradol dosing. heart tones are in the 150s in PACU. HIMA ESPINO /[id number]
[2020-08-21] MEDS: Ketorolac 30 MG/ML SDV IVPUSH SCH ×3 (11:48→23:23)
[2020-08-21] MEDS: Azithromycin 500 MG in Sodium Chloride 0.9% 250 ML IV SCH (18:11)
[2020-08-22] MEDS: Ampicillin 1 GM in Sodium Chloride 0.9% 50 ML IV SCH ×3 (06:12→16:50)
[2020-08-22] MEDS: Ketorolac 30 MG/ML SDV IVPUSH SCH (06:13)
--- NOTE | 2020-08-22 07:01 | PCM48HPAN ---
Post Anesthesia Note - EVALUATION WITHIN 48HRS OF ANESTHETIC Vital Signs in Normal Range: Yes Patient Participated in Evaluation: Yes Respiratory Function Stable: Yes Airway Patent: Yes Cardiovascular Function Stable: Yes Hydration Status Stable: Yes Pain Control Satisfactory: Yes Nausea and Vomiting Control Satisfactory: Yes Mental Status Recovered: Yes Vital Signs: Last Vital Signs Temp 36.3 C 08/22/20 04:14 Pulse 63 08/22/20 04:29 Resp 15 08/22/20 04:14 BP 94/58 L 08/22/20 04:29 Pulse Ox 98 08/22/20 04:14
--- NOTE | 2020-08-22 08:37 | PCM.SURGPN ---
- General Info Date of Service: 08/22/20 POD#: 1 Functional Status: Reports: Pain Controlled, Tolerating Diet, Urinating - Review of Systems General: Reports: Fatigue. Denies: Fever, Weakness Pulmonary: Denies: Shortness of Breath Cardiovascular: Denies: Chest Pain, Palpitations, Lightheadedness Gastrointestinal: Denies: Abdominal Pain, Nausea, Vomiting Genitourinary: Denies: Flank Pain Musculoskeletal: Reports: No Symptoms Skin: Reports: No Symptoms Neurological: Reports: No Symptoms Psychiatric: Reports: Anxiety - Patient Data Vitals - Most Recent: Last Vital Signs Temp 36.0 C L 08/22/20 07:48 Pulse 69 08/22/20 07:48 Resp 18 08/22/20 07:48 BP 87/51 L 08/22/20 07:48 Pulse Ox 97 08/22/20 07:48 Weight - Most Recent: 77.564 kg I&O - Last 24 Hours: Intake & Output 08/21/20 08/22/20 08/22/20 22:59 06:59 14:59 Output Total 450 Balance -450 Med Orders - Current: Current Medications Acetaminophen (Tylenol) 650 mg PO Q4H PRN PRN Reason: mild pain and fever Last Admin: 08/21/20 12:53 Dose: 650 mg Documented by: Hydroxyzine Pamoate (Vistaril) 100 mg PO BEDTIME PRN PRN Reason: Anxiety Last Admin: 08/20/20 19:37 Dose: 100 mg Documented by: Tranexamic Acid 1,000 mg/ (Sodium Chloride) 110 mls @ 660 mls/hr IV ONETIME PRN PRN Reason: Bleeding Lactated Ringer's (Ringers, Lactated) 1,000 mls @ 75 mls/hr IV ASDIRECTED [facility] Last Infusion: 08/21/20 13:30 Dose: 25 mls/hr Documented by: Ampicillin Sodium 1 gm/ Sodium (Chloride) 50 mls @ 100 mls/hr IV Q6H [facility] Last Admin: 08/22/20 06:12 Dose: 100 mls/hr Documented by: Azithromycin 500 mg/ Sodium (Chloride) 250 mls @ 250 mls/hr IV Q24H [facility] Last Admin: 08/21/20 18:11 Dose: 250 mls/hr Documented by: Ibuprofen (Motrin) 600 mg PO Q6H [facility] Ondansetron HCl (Zofran) 4 mg IVPUSH Q6H PRN PRN Reason: Nausea/Vomiting Sodium Chloride (Saline Flush) 10 ml FLUSH ASDIRECTED PRN PRN Reason: Keep Vein Open Sodium Chloride (Saline Flush) 2.5 ml FLUSH ASDIRECTED PRN PRN Reason: Keep Vein Open Sodium Chloride (Normal Saline) 10 ml IV ASDIRECTED PRN PRN Reason: IV Use Discontinued Medications Ephedrine Sulfate (Ephedrine Sulfate) Confirm Administered Dose 50 mg .ROUTE .[facility]-MED ONE Stop: 08/21/20 07:57 Ketorolac Tromethamine (Toradol) 30 mg IM Q6H [facility] Last Admin: 08/21/20 05:53 Dose: 30 mg Documented by: Ketorolac Tromethamine (Toradol) 30 mg IVPUSH Q6H [facility] Last Admin: 08/22/20 06:13 Dose: 30 mg Documented by: Ondansetron HCl (Zofran) Confirm Administered Dose 4 mg .ROUTE .[facility]-MED ONE Stop: 08/21/20 07:57 Scopolamine (Transderm-Scop) Confirm Administered Dose 1.5 mg .ROUTE .[facility] ONE Stop: 08/21/20 07:57 - Exam General: Alert, Oriented Lungs: Normal Respiratory Effort Cardiovascular: Regular Rate, Regular Rhythm GI/Abdominal Exam: Normal Bowel Sounds, Soft, Non-Tender Extremities: Pedal Edema (trace). No: Jordon's Sign Skin: Warm, Dry, Intact Psy/Mental Status: Alert, Normal Affect, Anxious Sepsis Event Note - Evaluation Sepsis Screening Result: No Definite Risk - Focused Exam Vital Signs: Vital Signs Temp Pulse Resp BP BP Pulse Ox 08/22/20 07:48 36.0 C L 69 18 87/51 L 97 08/22/20 04:29 63 94/58 L 08/22/20 04:14 36.3 C 62 15 86/45 L 98 - Problem List & Annotations (1) Hope cerclage present in second trimester SNOMED Code(s): 41429191, 84112274 Code(s): O34.32 - MATERNAL CARE FOR CERVICAL INCOMPETENCE, SECOND TRIMESTER Status: Acute Current Visit: Yes - Problem List Review Problem List Initiated/Reviewed/Updated: Yes - My Orders Last 24 Hours: Active Orders 24 hr Category Date Time Status Heart Tones [RC] DAILY Care 08/21/20 10:23 Active Ready for Discharge [RC] PER UNIT ROUTINE Care 08/22/20 08:33 Ordered Ibuprofen [Motrin] Med 08/22/20 08:45 Ordered 600 mg PO Q6H Medication Orders Acetaminophen (Tylenol) 650 mg PO Q4H PRN PRN Reason: mild pain and fever Last Admin: 08/21/20 12:53 Dose: 650 mg Documented by: ERIKA Hydroxyzine Pamoate (Vistaril) 100 mg PO BEDTIME PRN PRN Reason: Anxiety Last Admin: 08/20/20 19:37 Dose: 100 mg Documented by: SUSU Tranexamic Acid 1,000 mg/ (Sodium Chloride) 110 mls @ 660 mls/hr IV ONETIME PRN PRN Reason: Bleeding Lactated Ringer's (Ringers, Lactated) 1,000 mls @ 75 mls/hr IV ASDIRECTED [facility] Last Infusion: 08/21/20 13:30 Dose: 25 mls/hr Documented by: Admin: 08/21/20 06:41 Dose: 75 mls/hr Documented by: SUSU Ampicillin Sodium 1 gm/ Sodium (Chloride) 50 mls @ 100 mls/hr IV Q6H [facility] Last Admin: 08/22/20 06:12 Dose: 100 mls/hr Documented by: Infusion: 08/21/20 23:53 Dose: 100 mls/hr Documented by: Admin: 08/21/20 23:23 Dose: 100 mls/hr Documented by: Infusion: 08/21/20 17:10 Dose: 100 mls/hr Documented by: Admin: 08/21/20 16:40 Dose: 100 mls/hr Documented by: Infusion: 08/21/20 12:19 Dose: 100 mls/hr Documented by: Admin: 08/21/20 11:49 Dose: 100 mls/hr Documented by: Infusion: 08/21/20 06:26 Dose: 100 mls/hr Documented by: Admin: 08/21/20 05:56 Dose: 100 mls/hr Documented by: Infusion: 08/21/20 00:29 Dose: 100 mls/hr Documented by: Admin: 08/20/20 23:59 Dose: 100 mls/hr Documented by: Infusion: 08/20/20 18:14 Dose: 100 mls/hr Documented by: Admin: 08/20/20 17:44 Dose: 100 mls/hr Documented by: JESSICA Azithromycin 500 mg/ Sodium (Chloride) 250 mls @ 250 mls/hr IV Q24H [facility] Last Admin: 08/21/20 18:11 Dose: 250 mls/hr Documented by: Infusion: 08/20/20 19:15 Dose: 250 mls/hr Documented by: Admin: 08/20/20 18:15 Dose: 250 mls/hr Documented by: JESSICA Ibuprofen (Motrin) 600 mg PO Q6H [facility] Ondansetron HCl (Zofran) 4 mg IVPUSH Q6H PRN PRN Reason: Nausea/Vomiting Sodium Chloride (Saline Flush) 10 ml FLUSH ASDIRECTED PRN PRN Reason: Keep Vein Open Sodium Chloride (Saline Flush) 2.5 ml FLUSH ASDIRECTED PRN PRN Reason: Keep Vein Open Sodium Chloride (Normal Saline) 10 ml IV ASDIRECTED PRN PRN Reason: IV Use - Assessment Assessment (Free Text/Narrative):: POD 1 status post cervical cerclage - Plan Plan (Free Text/Narrative):: Patient has remained stable, scant vaginal bleeding. Denies contractions. The pelvic pressure/discomfort has resolved since cerclage placed. She is able to ambulate to bathroom and void. Will complete antibiotic dosing for a total of 48 hours antibiotics. Will resume vaginal progesterone suppositories and use motrin daily until 24 weeks. Follow up at [facility] next week. Pelvic rest, no lifting greater than 10 pounds. Call with any concerns. Discharge this evening as along as remains stable today.
[2020-08-22] MEDS: Ibuprofen 600 MG Tab PO SCH ×2 (11:20→17:33)
[2020-08-22] MEDS: Lactated Ringers 1,000 ML IV SCH (12:02)
[2020-08-22] MEDS: Azithromycin 500 MG in Sodium Chloride 0.9% 250 ML IV SCH (17:30)
== END 2020-08-22 18:50 | disposition home or self-care (01) ==
LOC: MW.SDS 07:47 → MW.OB 07:48 → MW.SDS 08-22 18:50
PROVIDERS: ATTEND Obstetrics & Gynecology
DX: O34.32 Maternal care for cervical incompetence, second trimester (principal); O26.872 Cervical shortening, second trimester; K21.9 Gastro-esophageal reflux disease without esophagitis; Z01.812 Encounter for preprocedural laboratory examination; Z20.822 Contact with and (suspected) exposure to COVID-19; Z3A.21 21 weeks gestation of pregnancy; Z79.899 Other long term (current) drug therapy; Z98.890 Other specified postprocedural states
CPT/HCPCS: 36415; 51702; 59320; 85027; 87635; A9270; J0290; J0456; J1885; J2405; J7050; J7120; J0330; U0002

== ENCOUNTER 2021-07-08 06:49 | Inpatient (IN) | payer BC ==
[2021-07-07 11:30] LABS: BLOOD UREA NITROGEN,BUN 12 mg/dL (7.0-18.0); CARBON DIOXIDE,CO2 28.1 mmol/L (21.0-32.0); CHLORIDE,CL 100 mmol/L (98-107); GLUCOSE RANDOM 96 mg/dL (74-106); POTASSIUM,K 3.9 mmol/L (3.5-5.1); SODIUM,NA 139 mmol/L (136-145)
[~2021-07-08 06:49] MED LIST changes: -Acetaminophen 325 MG Tab PO PRN; -Ondansetron 4 MG/2 ML SDV IVPUSH PRN; -Sodium Chloride 0.9% 10 ML SDV IV PRN; +Sodium Chloride 0.9% 20 ML SDV IV PRN; -Tranexamic Acid 1,000 MG in Sodium Chloride 0.9% 100 ML IV PRN; +ceFAZolin 1 GM in Premix Bag 1 BAG IV ONE; -hydrOXYzine Pamoate 25 MG Cap PO PRN
[2021-07-08] MEDS ORDERED: Lactated Ringers 1,000 ML IV SCH ×2 (07:15→10:00)
[2021-07-08] MEDS ORDERED: Propofol 200 MG/20 ML SDV ONE (07:22)
[2021-07-08] MEDS ORDERED: fentaNYL 250 MCG/5 ML SDV ONE ×2 (07:22→07:42)
[2021-07-08] MEDS ORDERED: Midazolam 1 MG/ML 2 ML SDV ONE ×2 (07:22→07:42)
[2021-07-08] MEDS ORDERED: Rocuronium Bromide 50 MG/5 ML Syringe ONE ×2 (07:23→07:42)
[2021-07-08] MEDS ORDERED: Ketorolac 30 MG/ML SDV ONE ×2 (07:23→07:42)
[2021-07-08] MEDS ORDERED: Glycopyrrolate 0.2 MG/ML SDV ONE ×2 (07:23→07:42)
[2021-07-08] MEDS ORDERED: Sugammadex Sodium 200 MG/2 ML VIAL ONE ×2 (07:23→07:42)
[2021-07-08] MEDS ORDERED: Ondansetron 4 MG/2 ML SDV ONE ×2 (07:23→07:42)
[2021-07-08] MEDS ORDERED: Lidocaine 2% 5 ML SDV ONE ×2 (07:23→07:42)
[2021-07-08] MEDS ORDERED: Albuterol 0.083% 2.5 MG/3 ML Neb Soln NEB PRN (07:26)
[2021-07-08] MEDS ORDERED: Ondansetron 4 MG/2 ML SDV IVPUSH PRN ×2 (07:26→17:15)
[2021-07-08] MEDS ORDERED: Acetaminophen 1,000 MG in Premix Bag 1 BAG IV PRN (07:26)
[2021-07-08] MEDS ORDERED: Metoclopramide 10 MG/2 ML SDV IVPUSH PRN (07:26)
[2021-07-08] MEDS ORDERED: Naloxone 0.4 MG/ML SDV IVPUSH PRN ×2 (07:26→17:15)
--- NOTE | 2021-07-08 07:29 | PCM.PREANE ---
Preanesthetic Assessment - Procedure Proposed Procedure: Total Abdominal Hysterectomy - Anesthesia/Transfusion/Family Hx Anesthesia History: Prior Anesthesia Without Reaction Other Type of Anesthesia Reaction Comment: PONV Family History of Anesthesia Reaction: No Transfusion History: No Prior Transfusion(s) Intubation History: Unknown - Review of Systems General: No Symptoms Pulmonary: No Symptoms (Quit smoking x 10 years, Excer induced asthma) Cardiovascular: No Symptoms Gastrointestinal: No Symptoms Neurological: No Symptoms Other: Reports: None (DDD back) - Physical Assessment NPO Status Date: 07/07/21 NPO Status Time: 19:00 Vital Signs: Last Vital Signs Temp 97.5 F 07/08/21 07:24 Pulse 82 07/08/21 07:24 Resp 14 07/08/21 07:24 BP 111/71 07/08/21 07:24 Pulse Ox 100 07/08/21 07:24 Height: 5 ft 7 in Weight: 72.121 kg ASA Class: 2 Mental Status: Alert & Oriented x3 Airway Class: Mallampati = 2 Dentition: Reports: Normal Dentition Thyro-Mental Finger Breadths: 3 Mouth Opening Finger Breadths: 3 ROM/Head Extension: Full Lungs: Clear to Auscultation, Normal Respiratory Effort Cardiovascular: Regular Rate, Regular Rhythm - Lab Values: Laboratory Last Values WBC 7.39 K/uL (4.0-11.0) 07/07/21 10:21 RBC 4.52 M/uL (4.30-5.90) 07/07/21 10:21 Hgb 13.8 g/dL (12.0-16.0) 07/07/21 10:21 Hct 40.8 % (36.0-46.0) 07/07/21 10:21 MCV 90.3 fL (80.0-98.0) 07/07/21 10:21 MCH 30.5 pg (27.0-32.0) 07/07/21 10:21 MCHC 33.8 g/dL (31.0-37.0) 07/07/21 10:21 RDW Std Deviation 41.2 fl (28.0-62.0) 07/07/21 10:21 RDW Coeff of Wilfred 13 % (11.0-15.0) 07/07/21 10:21 Plt Count 324 K/uL (150-400) 07/07/21 10:21 MPV 10.00 fL (7.40-12.00) 07/07/21 10:21 Nucleated RBC % 0.0 /100WBC 07/07/21 10:21 Nucleated RBCs # 0 K/uL 07/07/21 10:21 Sodium 139 mmol/L (136-145) 07/07/21 10:21 Potassium 3.9 mmol/L (3.5-5.1) 07/07/21 10:21 Chloride 100 mmol/L (98-107) 07/07/21 10:21 Carbon Dioxide 28.1 mmol/L (21.0-32.0) 07/07/21 10:21 BUN 12 mg/dL (7.0-18.0) 07/07/21 10:21 Creatinine 0.8 mg/dL (0.6-1.0) 07/07/21 10:21 Est Cr Clr Drug Dosing 95.45 mL/min 07/07/21 10:21 Estimated GFR (MDRD) > 60.0 ml/min 07/07/21 10:21 Glucose 96 mg/dL (74-106) 07/07/21 10:21 Calcium 9.8 mg/dL (8.5-10.1) 07/07/21 10:21 HCG, Qual NEGATIVE (NEG) 07/07/21 10:21 Blood Type O POSITIVE 07/07/21 10:21 Antibody Screen NEGATIVE 07/07/21 10:21 - Allergies Allergies/Adverse Reactions: Allergies Allergy/AdvReac Type Severity Reaction Status Date / Time doxycycline Allergy Vomiting Verified 07/08/21 07:10 Sulfa (Sulfonamide Allergy Vomiting Verified 07/08/21 07:10 Antibiotics) - Acknowledgements Anesthesia Type Planned: General Anesthesia Pt an Appropriate Candidate for the Planned Anesthesia: Yes Alternatives and Risks of Anesthesia Discussed w Pt/Guardian: Yes Pt/Guardian Understands and Agrees with Anesthesia Plan: Yes PreAnesthesia Questionnaire HEENT History: Reports: Allergic Rhinitis, Other (See Below) Other HEENT History: readers Cardiovascular History: Reports: None Respiratory History: Reports: Asthma Other Respiratory History: Allergy induced asthma- rarely uses inhaler Gastrointestinal History: Reports: GERD, Hiatal Hernia Genitourinary History: Reports: None SALES ANALYST History: Reports: , Spontaneous Musculoskeletal History: Reports: Back Pain, Chronic, Fracture Other Musculoskeletal History: hx of fx pinky, DDD Neurological History: Reports: Migraines, Other (See Below) Other Neuro History: head injury as a child- required stitches, hx of motion sickness Psychiatric History: Reports: None Endocrine/Metabolic History: Reports: None Hematologic History: Reports: None Immunologic History: Reports: None Oncologic (Cancer) History: Reports: None Dermatologic History: Reports: None - Infectious Disease History Infectious Disease History: Reports: None - Past Surgical History Head Surgeries/Procedures: Reports: None HEENT Surgical History: Reports: None Cardiovascular Surgical History: Reports: None Respiratory Surgical History: Reports: None GI Surgical History: Reports: Appendectomy Female Surgical History: Reports: Breast Implant, Section, D&C, Other (See Below) Other Female Surgeries/Procedures: breast augmentation, laparotomy with adhesiolysis, ervical cerclage Endocrine Surgical History: Reports: None Neurological Surgical History: Reports: None Musculoskeletal Surgical History: Reports: Other (See Below) Oncologic Surgical History: Reports: None Dermatological Surgical History: Reports: None - SUBSTANCE USE Tobacco Use Status *Q: Former Tobacco User Tobacco Use Within Last Twelve Months: No - HOME MEDS Home Medications: Home Meds Acetaminophen [Tylenol Extra Strength] 1,000 mg PO Q6H PRN 03/21/19 [History] Cetirizine [ZyrTEC] 10 mg PO DAILY PRN 03/21/19 [History] Omeprazole 20 mg PO DAILY 03/21/19 [History] diphenhydrAMINE [Benadryl] 25 mg PO TID PRN 03/21/19 [History] Albuterol Sulfate [Albuterol Sulfate Hfa] 1 puff INH QID PRN 07/02/21 [History] Cyclobenzaprine HCl 10 mg PO ASDIRECTED PRN 07/02/21 [History] Ibuprofen 600 mg PO Q6H PRN 07/02/21 [History] Multivitamin 1 tab PO DAILY 07/02/21 [History] valACYclovir HCl [Valtrex] 500 mg PO ASDIRECTED PRN 07/02/21 [History] - CURRENT (IN HOUSE) MEDS Current Meds: Current Medications Lactated Ringer's (Ringers, Lactated) 1,000 mls @ 125 mls/hr IV ASDIRECTED [facility] Last Admin: 07/08/21 07:24 Dose: 125 mls/hr Documented by: Sodium Chloride (Sodium Chloride 0.9% 10 Ml Syringe) 10 ml FLUSH ASDIRECTED PRN PRN Reason: Keep Vein Open Sodium Chloride (Sodium Chloride 0.9% 2.5 Ml Syringe) 2.5 ml FLUSH ASDIRECTED PRN PRN Reason: Keep Vein Open Sodium Chloride (Sodium Chloride 0.9% 20 Ml Sdv) 10 ml IV ASDIRECTED PRN PRN Reason: IV Use Discontinued Medications Fentanyl (Fentanyl 250 Mcg/5 Ml Sdv) Confirm Administered Dose 250 mcg .ROUTE .[facility]-MED ONE Stop: 07/08/21 07:23 Glycopyrrolate (Glycopyrrolate 0.2 Mg/Ml Sdv) Confirm Administered Dose 0.2 mg .ROUTE .STK-MED ONE Stop: 07/08/21 07:24 Cefazolin Sodium/Dextrose 1 gm (/ Premix) 50 mls @ 100 mls/hr IV ONETIME ONE Stop: 07/08/21 05:29 Ketorolac Tromethamine (Ketorolac 30 Mg/Ml Sdv) Confirm Administered Dose 30 mg .ROUTE .STK-MED ONE Stop: 07/08/21 07:24 Lidocaine (Lidocaine 2% 5 Ml Sdv) Confirm Administered Dose 5 ml .ROUTE .STK-MED ONE Stop: 07/08/21 07:24 Midazolam HCl (Midazolam 1 Mg/Ml 2 Ml Sdv) Confirm Administered Dose 2 mg .ROUTE .STK-MED ONE Stop: 07/08/21 07:23 Ondansetron HCl (Ondansetron 4 Mg/2 Ml Sdv) Confirm Administered Dose 4 mg .ROUTE .STK-MED ONE Stop: 07/08/21 07:24 Propofol (Propofol 200 Mg/20 Ml Sdv) Confirm Administered Dose 200 mg .ROUTE .STK-MED ONE Stop: 07/08/21 07:23 Rocuronium [place] (Rocuronium [place] 50 Mg/5 Ml Syringe) Confirm Administered Dose 50 mg .ROUTE .STK-MED ONE Stop: 07/08/21 07:24 Sugammadex Sodium (Sugammadex Sodium 200 Mg/2 Ml Vial) Confirm Administered Dose 200 mg .ROUTE .STK-MED ONE Stop: 07/08/21 07:24
[2021-07-08] MEDS ORDERED: Octyl 2-Cyanoacrylate 1 Tube ONE (07:34)
[2021-07-08] MEDS ORDERED: Bupivacaine 0.25% 10 ML SDV ONE (07:34)
[2021-07-08] MEDS ORDERED: Fluorescein 5 ML Vial ONE (07:34)
[2021-07-08] MEDS ORDERED: Scopolamine 1.5 MG Transdermal Patch ONE (08:12)
[2021-07-08] MEDS ORDERED: fentaNYL 100 MCG/2 ML SDV ONE (09:41)
[2021-07-08] MEDS ORDERED: Ketorolac 30 MG/ML SDV IVPUSH ONE (09:49)
[2021-07-08] MEDS ORDERED: Ketorolac 30 MG/ML SDV IVPUSH PRN (09:49)
[2021-07-08] MEDS ORDERED: Acetaminophen/oxyCODONE 325-5 MG Tab PO PRN ×2 (09:49)
[2021-07-08] MEDS ORDERED: Promethazine 25 MG/ML SDV IM PRN (09:49)
[2021-07-08] MEDS: HYDROmorphone 1 MG/ML Syringe IVPUSH PRN ×2 (09:56→10:08)
[2021-07-08] MEDS ORDERED: Morphine Sulfate in 0.9 % NaCl 50 MG/50 ML PCA Bag IV SCH (10:00)
--- NOTE | 2021-07-08 10:02 | PCM.POSTAN ---
POST ANESTHESIA ASSESSMENT - MENTAL STATUS Mental Status: Somnolent - VITAL SIGNS Vital Signs: Last Vital Signs Temp 97.7 F 07/08/21 09:50 Pulse 93 07/08/21 09:55 Resp 20 07/08/21 09:55 BP 118/80 07/08/21 09:55 Pulse Ox 100 07/08/21 09:55 - RESPIRATORY Respiratory Status: Respiratory Rate WNL, Airway Patent, O2 Saturation Stable - CARDIOVASCULAR CV Status: Pulse Rate WNL, Blood Pressure Stable - GASTROINTESTINAL GI Status: No Symptoms - PAIN Free Text/Narrative:: Resting comfortably - POST OP HYDRATION Hydration Status: Adequate & Stable
--- NOTE | 2021-07-08 10:14 | PCM.OPNOTE ---
- General Post-Op/Procedure Note Date of Surgery/Procedure: 07/08/21 Operative Procedure(s): TEMITOPE, cystoscopy, lysis of adhesions Findings: Extensive omental anterior uterine adhesions, extensive utero-vesicle adhesions. Normal appearing ovaries. Bilateral patent ureters Pre Op Diagnosis: Menometrorrhagia. Pelvic pain Post-Op Diagnosis: Same Anesthesia Technique: General ET Tube Primary Surgeon: Quynh Kwok Regulatory Affairs Spec: Zaida Suarez Pathology: uterus/cervix Fluid Replacement, Intraop: 2,000 EBL in mLs: 300 Complications: none known Condition: Stable Free Text/Narrative:: Dictation [id number]
[2021-07-08] MEDS: fentaNYL 100 MCG/2 ML SDV IVPUSH PRN ×2 (10:25→10:33)
[2021-07-08] MEDS ORDERED: Morphine 4 MG/ML VIAL IVPUSH ONE (11:03)
--- NOTE | 2021-07-08 11:20 | PCM48HPAN ---
Post Anesthesia Note - EVALUATION WITHIN 48HRS OF ANESTHETIC Vital Signs in Normal Range: Yes Patient Participated in Evaluation: Yes Respiratory Function Stable: Yes Airway Patent: Yes Cardiovascular Function Stable: Yes Hydration Status Stable: Yes Pain Control Satisfactory: Yes Nausea and Vomiting Control Satisfactory: Yes Mental Status Recovered: Yes Vital Signs: Last Vital Signs Temp 97.7 F 07/08/21 09:50 Pulse 72 07/08/21 10:46 Resp 14 07/08/21 10:46 BP 102/55 L 07/08/21 10:46 Pulse Ox 94 L 07/08/21 10:46 - COMMENTS/OBSERVATIONS Free Text/Narrative:: Pt doing well post-op. VSS. No apparent anesthetic complications. Dr. Dex Delgado
[2021-07-08] MEDS ORDERED: Morphine 50 MG in Sodium Chloride 0.9% 37.5 ML IV SCH (11:30)
[2021-07-08] MEDS: Ketorolac 30 MG/ML SDV IVPUSH SCH ×2 (15:01→21:42)
[2021-07-08] MEDS: Ondansetron 4 MG/2 ML SDV IVPUSH PRN ×2 (15:08→21:43)
--- NOTE | 2021-07-08 15:51 | OR ---
SURGEON: Quynh Kwok M.D. DATE OF PROCEDURE: 07/08/2021 PREOPERATIVE DIAGNOSES: 1. Menometrorrhagia. 2. Pelvic pain. POSTOPERATIVE DIAGNOSES: 1. Menometrorrhagia. 2. Pelvic pain. PROCEDURES: Total abdominal hysterectomy, cystoscopy, adhesiolysis. PRIMARY SURGEON: Quynh Kwok M.D. INLAYER SILVER: Zaida Suarez M.D. ANESTHESIA: General endotracheal anesthesia. ESTIMATED BLOOD LOSS: 300 mL. FLUIDS: 2030 mL of crystalloid. COMPLICATIONS: None known. FINDINGS: Extensive anterior uterine omental adhesions, more so on the right side. Extensive uterovesical adhesions. Normal-appearing ovaries. Bilateral patent ureters. DISPOSITION: The patient to PACU, stable. SPECIMEN: Pathology. PROCEDURE DETAILS: Janee is a 35-year-old female who has ongoing difficulties with menometrorrhagia and pelvic pain. At this time, she would like to proceed with definitive surgical intervention from hysterectomy. The patient has known extensive pelvic adhesive disease. She has already had a laparotomy performed by Manufacturing Technology Professor-oncologist for adhesiolysis. She subsequently had a at 23 weeks and tubal ligation was performed at that time. Anticipating this history, I have advised the patient to proceed with abdominal hysterectomy with General Surgery on standby. The risks of procedure have been extensively discussed with the patient. Proper consent obtained. The patient was taken to the operating room where she underwent general endotracheal anesthesia, was placed in modified dorsal lithotomy position, prepped and draped in the usual sterile fashion. SCDs to the lower extremities, Jay to gravity, received Ancef prophylactically. Time-out was performed. The previous Pfannenstiel skin incision was excised. Subcutaneous tissue was incised along with rectus fascia which was thickened and adhesed. This was incised in midline, lateralized on either side sharply and bluntly. Superior aspect of the fascia was tented upward and inferior aspect of fascia was tented downward. Rectus muscle was in the midline. These were fairly densely adhesed together. However, plane was able to be formulated and performed, and with gentle blunt and sharp dissection, was able to enter the peritoneum. Rectus muscle and peritoneum were now lateralized bluntly. Upon initial inspection, the uterus posteriorly was mobile; however, there were extensive anterior omental adhesions, more so along the right side. These were gently lysed. There was a thicker peritoneal adhesions along the left side. Once again, these were also gently lysed, was able to grasp the cornua of the uterus on the side with a Pean clamp. The bowel was packed away from the operative field. Using moist packing sponges, a self-retaining retractor now gently was placed after mobilizing some of the uterovesical adhesions away from the lower uterine segment using sharp and blunt dissection. At this juncture, the uterus was tented upward. The round ligament on the right side is now secured with 2-0 Vicryl, transected and the medial leaf of broad ligament was further dissected creating utero-ovarian pedicle which was secured x2 with Z clamps, transected, and suture ligated x2 with 2-0 Vicryl. Similar fashion was performed on the patient's left side. The ovaries did appear normal; therefore, they will remain in place. Attention was now turned to performing further dissection of the bladder away from the lower uterine segment cervix with gentle sharp and blunt dissection, was able to work through the thickened adhesions. Total adhesiolysis for the procedure was approximately 30 minutes. Once the bladder was mobilized away from the lower uterine segment, I was able to continue securing the pedicles of the uterus, moved towards the cardinal ligament, securing the vessels at the level of the internal os after skeletonizing this region with the Z clamp, was able to secure the pedicle after skeletonizing the region, transected and suture ligated on either side. Further pedicle was then able to be secured, transected and suture ligated. At this juncture, we were at the level of the uterosacral ligament. This was secured on either side, transected and suture ligated with 0 Vicryl. Using Bradley scissors, was able to circumscribe around the cervix and was able to secure the edges of the vagina to the peritoneum using Chica clamps. The uterus was now completely exteriorized, was handed off to nuclear technician to be sent to pathology. The uterosacral ligament on either side was plicated to the vaginal apex. The cuff was closed using 0 Vicryl in continuous running locked fashion followed by re-imbricating layer. This region was well irrigated and suction dried. Any areas of oozing were cauterized. There was an area of bleeding along the left lateral aspect that was secured with 3-0 Vicryl on SH. Pelvis was now copiously irrigated, suction dried. A few areas of oozing along the serosal region of the bladder were now gently cauterized. Hemostasis appeared evident along this region. There was a region of peritoneal bleeding just below the ovarian pedicle. These were both able to be secured using 3-0 Vicryl on SH needles. Once again, the pelvis was copiously irrigated, suction dried. Hemostasis appeared evident. Therefore, packing sponges were removed as well as sutures trimmed and self-retaining retractor. Attention was turned to performing cystoscopy. The patient had received IV Lasix and fluorescein. The cystoscope was introduced into the bladder after removing the deflated Jay. Using normal saline as distention media, I was able to visualize dome of the bladder, followed by the trigone. The left ureteral orifice followed by the right ureteral orifice were able to be visualized with fluorescein dyed urine streaming from them helping to ensure ureteral patency. The bladder was now drained. Jay catheter was replaced. Speculum exam was performed of the vagina and the vaginal cuff appeared to be hemostatic. Gloves changed. Attention now returned abdominally. Once again, pelvis was closely inspected. Any areas of serosal oozing were now cauterized. Region was well irrigated and suction dried. Hemostasis appeared evident. The sponge, instrument, needle count are correct at this point. The rectus muscle and peritoneum were now reapproximated using 0 Vicryl with inverted mattress suture technique. Anterior aspect of the muscle and posterior aspect of the fascia closely inspected. Any areas of oozing were cauterized. The rectus fascia was now reapproximated using 0 Vicryl in continuous running fashion beginning laterally on each side and meeting in the midline. Subcutaneous tissues were irrigated, suction dried. Any areas of oozing were cauterized. The skin edges were reapproximated using 3-0 Vicryl in a Mati needle in subcuticular fashion followed by placement of Dermabond. A pressure dressing was placed after Dermabond was dried. Sponge, instrument, and needle counts were correct x2. The patient has tolerated the procedure well overall. She will go to PACU in stable condition. Specimen to pathology. HIMA / KENZIE /[id number] ESTEPHANIE
[2021-07-08] MEDS ORDERED: HYDROmorphone/Normal Saline 10 MG/50 ML PCA IV PRN (17:05)
--- NOTE | 2021-07-08 17:11 | PCM.SURGPN ---
- General Info Date of Service: 07/08/21 POD#: 0 Functional Status: Denies: Pain Controlled, Tolerating Diet - Review of Systems General: Reports: Fatigue. Denies: Fever Pulmonary: Denies: Shortness of Breath Cardiovascular: Denies: Chest Pain, Palpitations, Lightheadedness Gastrointestinal: Reports: Abdominal Pain, Nausea, Vomiting Genitourinary: Denies: Flank Pain Musculoskeletal: Reports: No Symptoms Skin: Reports: No Symptoms Neurological: Reports: No Symptoms Psychiatric: Reports: Anxiety - Patient Data Vitals - Most Recent: Last Vital Signs Temp 36.5 C 07/08/21 09:50 Pulse 72 07/08/21 10:46 Resp 14 07/08/21 10:46 BP 102/55 L 07/08/21 10:46 Pulse Ox 94 L 07/08/21 10:46 Weight - Most Recent: 72.121 kg I&O - Last 24 Hours: Intake & Output 07/08/21 07/08/21 07/08/21 06:59 14:59 22:59 Intake Total 4500 Output Total 750 Balance 3750 Med Orders - Current: Current Medications Docusate Sodium (Docusate Sodium 100 Mg Cap) 100 mg PO BID [facility] Lactated Ringer's (Ringers, Lactated) 1,000 mls @ 125 mls/hr IV ASDIRECTED [facility] Ketorolac Tromethamine (Ketorolac 30 Mg/Ml Sdv) 30 mg IVPUSH Q6H [facility] Stop: 07/09/21 09:31 Last Admin: 07/08/21 15:01 Dose: 30 mg Documented by: Ondansetron HCl (Ondansetron 4 Mg/2 Ml Sdv) 4 mg IVPUSH Q6H PRN PRN Reason: Nausea/Vomiting Last Admin: 07/08/21 15:08 Dose: 4 mg Documented by: Oxycodone/Acetaminophen (Acetaminophen/Oxycodone 325-5 Mg Tab) 1 tab PO Q4H PRN PRN Reason: Pain (moderate 4-6) Oxycodone/Acetaminophen (Acetaminophen/Oxycodone 325-5 Mg Tab) 2 tab PO Q4H PRN PRN Reason: Pain (moderate 4-6) Promethazine HCl (Promethazine 25 Mg/Ml Sdv) 25 mg IM Q6H PRN PRN Reason: Nausea/Vomiting Last Admin: 07/08/21 11:29 Dose: 25 mg Documented by: Sodium Chloride (Sodium Chloride 0.9% 10 Ml Syringe) 10 ml FLUSH ASDIRECTED PRN PRN Reason: Keep Vein Open Sodium Chloride (Sodium Chloride 0.9% 2.5 Ml Syringe) 2.5 ml FLUSH ASDIRECTED PRN PRN Reason: Keep Vein Open Sodium Chloride (Sodium Chloride 0.9% 20 Ml Sdv) 10 ml IV ASDIRECTED PRN PRN Reason: IV Use Discontinued Medications Albuterol (Albuterol 0.083% 2.5 Mg/3 Ml Neb Soln) 2.5 mg NEB ONETIME PRN PRN Reason: Wheezing Bupivacaine HCl (Bupivacaine 0.25% 10 Ml Sdv) Confirm Administered Dose 10 ml .ROUTE .STK-MED ONE Stop: 07/08/21 07:35 Droperidol (Droperidol 5 Mg/2 Ml Sdv) 0.625 mg IVPUSH ONETIME PRN PRN Reason: Nausea/Vomiting Fentanyl (Fentanyl 250 Mcg/5 Ml Sdv) Confirm Administered Dose 250 mcg .ROUTE .STK-MED ONE Stop: 07/08/21 07:23 Fentanyl (Fentanyl 100 Mcg/2 Ml Sdv) 50 mcg IVPUSH Q5M PRN PRN Reason: Pain (mild 1-3) Last Admin: 07/08/21 10:33 Dose: 50 mcg Documented by: Fentanyl (Fentanyl 250 Mcg/5 Ml Sdv) Confirm Administered Dose 250 mcg .ROUTE .STK-MED ONE Stop: 07/08/21 07:43 Fentanyl (Fentanyl 100 Mcg/2 Ml Sdv) Confirm Administered Dose 100 mcg .ROUTE .STK-MED ONE Stop: 07/08/21 09:42 Fluorescein Sodium (Fluorescein 5 Ml Vial) Confirm Administered Dose 5 ml .ROUTE .STK-MED ONE Stop: 07/08/21 07:35 Glycopyrrolate (Glycopyrrolate 0.2 Mg/Ml Sdv) Confirm Administered Dose 0.2 mg .ROUTE .STK-MED ONE Stop: 07/08/21 07:24 Glycopyrrolate (Glycopyrrolate 0.2 Mg/Ml Sdv) Confirm Administered Dose 0.2 mg .ROUTE .STK-MED ONE Stop: 07/08/21 07:43 Hydromorphone HCl (Hydromorphone 1 Mg/Ml Syringe) 1 mg IVPUSH Q10M PRN PRN Reason: Pain (moderate 4-6) Last Admin: 07/08/21 10:08 Dose: 1 mg Documented by: Cefazolin Sodium/Dextrose 1 gm (/ Premix) 50 mls @ 100 mls/hr IV ONETIME ONE Stop: 07/08/21 05:29 Last Admin: 07/08/21 13:01 Dose: Not Given Documented by: Lactated Ringer's (Ringers, Lactated) 1,000 mls @ 125 mls/hr IV ASDIRECTED [facility] Last Admin: 07/08/21 07:24 Dose: 125 mls/hr Documented by: Acetaminophen 1,000 mg/ Premix 100 mls @ 400 mls/hr IV ONETIME PRN PRN Reason: Pain Morphine Sulfate 50 mg/ Sodium (Chloride) 50 mls @ 2.083 mls/hr IV ASDIRECTED [facility]; Protocol Last Infusion: 07/08/21 16:04 Dose: 0 mls/hr Documented by: Ketorolac Tromethamine (Ketorolac 30 Mg/Ml Sdv) Confirm Administered Dose 30 mg .ROUTE .STK-MED ONE Stop: 07/08/21 07:24 Ketorolac Tromethamine (Ketorolac 30 Mg/Ml Sdv) Confirm Administered Dose 30 mg .ROUTE .STK-MED ONE Stop: 07/08/21 07:43 Ketorolac Tromethamine (Ketorolac 30 Mg/Ml Sdv) 30 mg IVPUSH ONETIME ONE Stop: 07/08/21 09:50 Last Admin: 07/08/21 10:30 Dose: Not Given Documented by: Ketorolac Tromethamine (Ketorolac 30 Mg/Ml Sdv) 30 mg IVPUSH Q6H PRN PRN Reason: Pain (severe 7-10) Stop: 07/13/21 09:50 Lidocaine (Lidocaine 2% 5 Ml Sdv) Confirm Administered Dose 5 ml .ROUTE .STK-MED ONE Stop: 07/08/21 07:24 Lidocaine (Lidocaine 2% 5 Ml Sdv) Confirm Administered Dose 5 ml .ROUTE .STK-MED ONE Stop: 07/08/21 07:43 Metoclopramide HCl (Metoclopramide 10 Mg/2 Ml Sdv) 10 mg IVPUSH ONETIME PRN PRN Reason: Nausea/Vomiting Midazolam HCl (Midazolam 1 Mg/Ml 2 Ml Sdv) Confirm Administered Dose 2 mg .ROUTE .STK-MED ONE Stop: 07/08/21 07:23 Midazolam HCl (Midazolam 1 Mg/Ml 2 Ml Sdv) Confirm Administered Dose 2 mg .ROUTE .STK-MED ONE Stop: 07/08/21 07:43 Miscellaneous Medication (Phenylephrine Hcl In 0.9% Nacl 1 Mg/10 Ml Syringe) Confirm Administered Dose 1 mg .ROUTE .STK-MED ONE Stop: 07/08/21 08:13 Morphine Sulfate (Morphine 4 Mg/Ml Vial) 3 mg IVPUSH ONETIME ONE Stop: 07/08/21 11:04 Last Admin: 07/08/21 11:21 Dose: 3 mg Documented by: Naloxone HCl (Naloxone 0.4 Mg/Ml Sdv) 0.1 mg IVPUSH ASDIRECTED PRN PRN Reason: Respiratory Depression Octyl Cyanoacrylate (Octyl 2-Cyanoacrylate 1 Tube) Confirm Administered Dose 1 applic .ROUTE .ST-MED ONE Stop: 07/08/21 07:35 Ondansetron HCl (Ondansetron 4 Mg/2 Ml Sdv) Confirm Administered Dose 4 mg .ROUTE .STK-MED ONE Stop: 07/08/21 07:24 Ondansetron HCl (Ondansetron 4 Mg/2 Ml Sdv) 4 mg IVPUSH ONETIME PRN PRN Reason: Nausea/Vomiting Ondansetron HCl (Ondansetron 4 Mg/2 Ml Sdv) Confirm Administered Dose 4 mg .ROUTE .STK-MED ONE Stop: 07/08/21 07:43 Propofol (Propofol 200 Mg/20 Ml Sdv) Confirm Administered Dose 200 mg .ROUTE .STK-MED ONE Stop: 07/08/21 07:23 Rocuronium [place] (Rocuronium [place] 50 Mg/5 Ml Syringe) Confirm Administered Dose 50 mg .ROUTE .STK-MED ONE Stop: 07/08/21 07:24 Rocuronium [place] (Rocuronium [place] 50 Mg/5 Ml Syringe) Confirm Administered Dose 50 mg .ROUTE .STK-MED ONE Stop: 07/08/21 07:43 Scopolamine (Scopolamine 1.5 Mg Transdermal Patch) Confirm Administered Dose 1.5 mg .ROUTE .STK-MED ONE Stop: 07/08/21 08:13 Sugammadex Sodium (Sugammadex Sodium 200 Mg/2 Ml Vial) Confirm Administered Dose 200 mg .ROUTE .STK-MED ONE Stop: 07/08/21 07:24 Sugammadex Sodium (Sugammadex Sodium 200 Mg/2 Ml Vial) Confirm Administered Dose 200 mg .ROUTE .STK-MED ONE Stop: 07/08/21 07:43 - Exam Wound/Incisions: Dressing Dry and Intact General: Alert Lungs: Normal Respiratory Effort Cardiovascular: Regular Rate, Regular Rhythm GI/Abdominal Exam: Soft, Tender (appropriately along incisional region). No: Rigid Extremities: Normal Capillary Refill. No: Pedal Edema, Jordon's Sign Skin: Warm, Dry, Intact Neurological: No New Focal Deficit Psy/Mental Status: Alert Sepsis Event Note - Focused Exam Vital Signs: Vital Signs Temp Pulse Resp BP Pulse Ox 07/08/21 10:46 72 14 102/55 L 94 L 07/08/21 10:41 65 9 L 121/66 93 L 07/08/21 10:36 66 9 L 104/61 98 07/08/21 10:31 61 15 130/74 100 07/08/21 10:26 58 L 18 112/73 100 07/08/21 10:20 70 18 110/71 100 07/08/21 10:15 63 18 111/71 100 07/08/21 10:11 80 18 120/71 100 07/08/21 10:06 69 20 118/69 100 07/08/21 10:00 69 17 114/73 100 07/08/21 09:55 93 20 118/80 100 07/08/21 09:50 36.5 C 98 17 111/67 95 07/08/21 07:24 36.4 C 82 14 111/71 100 - Problem List & Annotations (1) Status post abdominal hysterectomy SNOMED Code(s): 576488611, 626621186 Code(s): Z90.710 - ACQUIRED ABSENCE OF BOTH CERVIX AND UTERUS Status: Acute Current Visit: Yes - Problem List Review Problem List Initiated/Reviewed/Updated: Yes - My Orders Last 24 Hours: Active Orders 24 hr Category Date Time Status Patient Status [ADT] Routine ADT 07/08/21 05:00 Active Patient Status [ADT] Routine ADT 07/08/21 09:50 Active Antiembolic Devices [RC] PER UNIT ROUTINE Care 07/08/21 09:50 Active Blood Glucose Check, Bedside [RC] PRN Care 07/08/21 07:26 Active Communication Order [RC] PER UNIT ROUTINE Care 07/08/21 17:06 Ordered Notify Provider Intake and Out [RC] ASDIRECTED Care 07/08/21 09:50 Active Notify Provider Vital Signs [RC] ASDIRECTED Care 07/08/21 07:26 Active Notify Provider Vital Signs [RC] ASDIRECTED Care 07/08/21 09:50 Active Overnight Pulse Oximetry [RC] Click to Edit Care 07/08/21 07:26 Active Oxygen Therapy [RC] ASDIRECTED Care 07/08/21 09:50 Active Oxygen Therapy [RC] PRN Care 07/08/21 07:26 Active ROUGE MIXER Record [RC] Q4H Care 07/08/21 17:06 Ordered RT Aerosol Therapy [RC] ASDIRECTED Care 07/08/21 07:26 Active RT Aerosol Therapy [RC] ASDIRECTED Care 07/08/21 07:26 Active RT BiPAP/CPAP [RC] ASDIRECTED Care 07/08/21 07:26 Active RT Incentive Spirometry [RC] Q2HWA Care 07/08/21 09:50 Active Up With Assistance [RC] PER UNIT ROUTINE Care 07/08/21 09:50 Active Up ad Tita [RC] PER UNIT ROUTINE Care 07/08/21 09:50 Active Urinary Catheter Removal [RC] Per Unit Routine Care 07/08/21 09:50 Active Vital Signs [RC] PER UNIT ROUTINE Care 07/08/21 17:06 Ordered Vital Signs [RC] Q4H Care 07/08/21 09:50 Active Vital Signs [RC] Q5M Care 07/08/21 07:26 Active Regular Diet [DIET] Diet 07/08/21 Lunch Active BASIC METABOLIC PANEL,BMP [CHEM] AM Lab 07/09/21 05:11 Ordered CBC WITH AUTO DIFF [HEME] AM Lab 07/09/21 05:11 Ordered Acetaminophen/oxyCODONE [Percocet 325-5 MG] Med 07/08/21 09:49 Active 1 tab PO Q4H PRN Acetaminophen/oxyCODONE [Percocet 325-5 MG] Med 07/08/21 09:49 Active 2 tab PO Q4H PRN Docusate Sodium [Colace] Med 07/08/21 21:00 Active 100 mg PO BID HYDROmorphone/Normal Saline [Dilaudid ROUGE MIXER 10 MG in NS Med 07/08/21 17:05 Ordered 50 ML] 0.2 mg IV ASDIRECTED PRN Ketorolac [Toradol] Med 07/08/21 15:30 Active 30 mg IVPUSH Q6H Lactated Ringers [Ringers, Lactated] 1,000 ml Med 07/08/21 10:00 Active IV ASDIRECTED Naloxone [Narcan] Med 07/08/21 17:05 Ordered 0.4 mg IVPUSH Q3M PRN Ondansetron [Zofran] Med 07/08/21 09:49 Active 4 mg IVPUSH Q6H PRN Ondansetron [Zofran] Med 07/08/21 17:05 Ordered 4 mg IVPUSH Q6H PRN Promethazine [Phenergan] Med 07/08/21 09:49 Active 25 mg IM Q6H PRN Sodium Chloride 0.9% [Normal Saline] Med 07/08/21 05:00 Active 10 ml IV ASDIRECTED PRN Sodium Chloride 0.9% [Saline Flush] Med 07/08/21 05:00 Active 10 ml FLUSH ASDIRECTED PRN Sodium Chloride 0.9% [Saline Flush] Med 07/08/21 05:00 Active 2.5 ml FLUSH ASDIRECTED PRN diphenhydrAMINE [Benadryl] Med 07/08/21 17:05 Ordered 25 mg IVPUSH Q6H PRN diphenhydrAMINE [Benadryl] Med 07/08/21 17:05 Ordered 25 mg PO Q6H PRN Peripheral IV Discontinue [OM.PC] Routine Oth 07/08/21 09:50 Ordered Peripheral IV Insertion Adult [OM.PC] Urgent Oth 07/08/21 05:00 Ordered Pulse Oximetry Continuous Monitoring [OM.PC] Routine Oth 07/08/21 07:26 O rdered Pulse Oximetry Continuous Monitoring [OM.PC] Routine Oth 07/08/21 17:06 Ordered Sequential Compression Device [OM.PC] Per Unit Routine Oth 07/08/21 05:00 Ordered Sequential Compression Device [OM.PC] Per Unit Routine Oth 07/08/21 09:50 Ordered Resuscitation Status Routine Resus Stat 07/08/21 09:49 Ordered Medication Orders Docusate Sodium (Docusate Sodium 100 Mg Cap) 100 mg PO BID [facility] Lactated Ringer's (Ringers, Lactated) 1,000 mls @ 125 mls/hr IV ASDIRECTED [facility] Ketorolac Tromethamine (Ketorolac 30 Mg/Ml Sdv) 30 mg IVPUSH Q6H [place] Stop: 07/09/21 09:31 Last Admin: 07/08/21 15:01 Dose: 30 mg Documented by: DIANA Ondansetron HCl (Ondansetron 4 Mg/2 Ml Sdv) 4 mg IVPUSH Q6H PRN PRN Reason: Nausea/Vomiting Last Admin: 07/08/21 15:08 Dose: 4 mg Documented by: DIANA Oxycodone/Acetaminophen (Acetaminophen/Oxycodone 325-5 Mg Tab) 1 tab PO Q4H PRN PRN Reason: Pain (moderate 4-6) Oxycodone/Acetaminophen (Acetaminophen/Oxycodone 325-5 Mg Tab) 2 tab PO Q4H PRN PRN Reason: Pain (moderate 4-6) Promethazine HCl (Promethazine 25 Mg/Ml Sdv) 25 mg IM Q6H PRN PRN Reason: Nausea/Vomiting Last Admin: 07/08/21 11:29 Dose: 25 mg Documented by: RAMO Sodium Chloride (Sodium Chloride 0.9% 10 Ml Syringe) 10 ml FLUSH ASDIRECTED PRN PRN Reason: Keep Vein Open Sodium Chloride (Sodium Chloride 0.9% 2.5 Ml Syringe) 2.5 ml FLUSH ASDIRECTED PRN PRN Reason: Keep Vein Open Sodium Chloride (Sodium Chloride 0.9% 20 Ml Sdv) 10 ml IV ASDIRECTED PRN PRN Reason: IV Use - Assessment Assessment (Free Text/Narrative):: POD 0 status post TEMITOPE/Extensive adhesiolysis/cystoscopy - Plan Plan (Free Text/Narrative):: Per patient request will switch to dilaudid. Attempt ambulation this evening and work towards oral analgesics. VS are stable. Labs in the morning. Continue postoperative cares.
[2021-07-08] MEDS ORDERED: diphenhydrAMINE 50 MG/ML SDV IVPUSH PRN (17:15)
[2021-07-08] MEDS ORDERED: diphenhydrAMINE 25 MG Cap PO PRN (17:15)
[2021-07-08] MEDS ORDERED: HYDROMORPHONE IV PRN (17:45)
[2021-07-08] MEDS ORDERED: NORMAL SALINE IV PRN (17:45)
[2021-07-08] MEDS: Docusate Sodium 100 MG Cap PO SCH (21:43)
[2021-07-09] MEDS: Ketorolac 30 MG/ML SDV IVPUSH SCH ×2 (03:43→09:59)
[2021-07-09] MEDS: Ondansetron 4 MG/2 ML SDV IVPUSH PRN (03:43)
--- NOTE | 2021-07-09 08:15 | PCM.SURGPN ---
- General Info Date of Service: 07/09/21 POD#: 1 Functional Status: Reports: Pain Controlled, Tolerating Diet, Ambulating - Review of Systems General: Reports: Fatigue. Denies: Fever, Weakness Pulmonary: Denies: Shortness of Breath Cardiovascular: Reports: No Symptoms Gastrointestinal: Reports: Abdominal Pain (incisional appropriate), Nausea (improving). Denies: Vomiting Genitourinary: Reports: No Symptoms Musculoskeletal: Reports: No Symptoms Skin: Reports: No Symptoms Neurological: Reports: No Symptoms Psychiatric: Reports: No Symptoms - Patient Data Vitals - Most Recent: Last Vital Signs Temp 36.6 C 07/09/21 03:59 Pulse 63 07/09/21 03:59 Resp 16 07/09/21 03:59 BP 111/63 07/09/21 03:59 Pulse Ox 99 07/09/21 03:59 Weight - Most Recent: 72.121 kg I&O - Last 24 Hours: Intake & Output 07/08/21 07/09/21 07/09/21 22:59 06:59 14:59 Intake Total 360 540 Output Total 600 1750 Balance -240 -1210 Lab Results Last 24 Hrs: Laboratory Results - last 24 hr 07/09/21 Range/Units 07:25 WBC 11.13 H (4.0-11.0) K/uL RBC 3.68 L (4.30-5.90) M/uL Hgb 11.3 L (12.0-16.0) g/dL Hct 33.5 L (36.0-46.0) % MCV 91.0 (80.0-98.0) fL MCH 30.7 (27.0-32.0) pg MCHC 33.7 (31.0-37.0) g/dL RDW Std Deviation 42.5 (28.0-62.0) fl RDW Coeff of Wilfred 13 (11.0-15.0) % Plt Count 292 (150-400) K/uL MPV 9.90 (7.40-12.00) fL Neut % (Auto) 75.6 (48.0-80.0) % Lymph % (Auto) 15.8 L (16.0-40.0) % [place] % (Auto) 8.3 (0.0-15.0) % Eos % (Auto) 0.2 (0.0-7.0) % Baso % (Auto) 0.1 (0.0-1.5) % Neut # (Auto) 8.4 H (1.4-5.7) K/uL Lymph # (Auto) 1.8 (0.6-2.4) K/uL [place] # (Auto) 0.9 H (0.0-0.8) K/uL Eos # (Auto) 0.0 (0.0-0.7) K/uL Baso # (Auto) 0.0 (0.0-0.1) K/uL Nucleated RBC % 0.0 /100WBC Nucleated RBCs # 0 K/uL Med Orders - Current: Current Medications Diphenhydramine HCl (Diphenhydramine 50 Mg/Ml Sdv) 25 mg IVPUSH Q6H PRN PRN Reason: Itching Diphenhydramine HCl (Diphenhydramine 25 Mg Cap) 25 mg PO Q6H PRN PRN Reason: Itching Docusate Sodium (Docusate Sodium 100 Mg Cap) 100 mg PO BID [facility] Last Admin: 07/08/21 21:43 Dose: 100 mg Documented by: Hydromorphone HCl (Hydromorphone 2 Mg Tab) 2 mg PO Q4H PRN PRN Reason: Abdominal Pain Lactated Ringer's (Ringers, Lactated) 1,000 mls @ 125 mls/hr IV ASDIRECTED [facility] Last Admin: 07/09/21 00:15 Dose: 125 mls/hr Documented by: Hydromorphone HCl 10 mg/ (Premix) 50 mls @ 1 mls/hr IV ASDIRECTED PRN; Protocol PRN Reason: Abdominal Pain Last Admin: 07/08/21 18:01 Dose: 1 mls/hr Documented by: Ketorolac Tromethamine (Ketorolac 30 Mg/Ml Sdv) 30 mg IVPUSH Q6H [facility] Stop: 07/09/21 09:31 Last Admin: 07/09/21 03:43 Dose: 30 mg Documented by: Naloxone HCl (Naloxone 0.4 Mg/Ml Sdv) 0.4 mg IVPUSH Q3M PRN PRN Reason: Respiratory Depression Ondansetron HCl (Ondansetron 4 Mg/2 Ml Sdv) 4 mg IVPUSH Q6H PRN PRN Reason: Nausea/Vomiting Last Admin: 07/09/21 03:43 Dose: 4 mg Documented by: Promethazine HCl (Promethazine 25 Mg/Ml Sdv) 25 mg IM Q6H PRN PRN Reason: Nausea/Vomiting Last Admin: 07/08/21 11:29 Dose: 25 mg Documented by: Sodium Chloride (Sodium Chloride 0.9% 10 Ml Syringe) 10 ml FLUSH ASDIRECTED PRN PRN Reason: Keep Vein Open Sodium Chloride (Sodium Chloride 0.9% 2.5 Ml Syringe) 2.5 ml FLUSH ASDIRECTED PRN PRN Reason: Keep Vein Open Sodium Chloride (Sodium Chloride 0.9% 20 Ml Sdv) 10 ml IV ASDIRECTED PRN PRN Reason: IV Use Discontinued Medications Albuterol (Albuterol 0.083% 2.5 Mg/3 Ml Neb Soln) 2.5 mg NEB ONETIME PRN PRN Reason: Wheezing Bupivacaine HCl (Bupivacaine 0.25% 10 Ml Sdv) Confirm Administered Dose 10 ml .ROUTE .STK-MED ONE Stop: 07/08/21 07:35 Droperidol (Droperidol 5 Mg/2 Ml Sdv) 0.625 mg IVPUSH ONETIME PRN PRN Reason: Nausea/Vomiting Fentanyl (Fentanyl 250 Mcg/5 Ml Sdv) Confirm Administered Dose 250 mcg .ROUTE .STK-MED ONE Stop: 07/08/21 07:23 Fentanyl (Fentanyl 100 Mcg/2 Ml Sdv) 50 mcg IVPUSH Q5M PRN PRN Reason: Pain (mild 1-3) Last Admin: 07/08/21 10:33 Dose: 50 mcg Documented by: Fentanyl (Fentanyl 250 Mcg/5 Ml Sdv) Confirm Administered Dose 250 mcg .ROUTE .STK-MED ONE Stop: 07/08/21 07:43 Fentanyl (Fentanyl 100 Mcg/2 Ml Sdv) Confirm Administered Dose 100 mcg .ROUTE .STK-MED ONE Stop: 07/08/21 09:42 Fluorescein Sodium (Fluorescein 5 Ml Vial) Confirm Administered Dose 5 ml .ROUTE .STK-MED ONE Stop: 07/08/21 07:35 Glycopyrrolate (Glycopyrrolate 0.2 Mg/Ml Sdv) Confirm Administered Dose 0.2 mg .ROUTE .STK-MED ONE Stop: 07/08/21 07:24 Glycopyrrolate (Glycopyrrolate 0.2 Mg/Ml Sdv) Confirm Administered Dose 0.2 mg .ROUTE .STK-MED ONE Stop: 07/08/21 07:43 Hydromorphone HCl (Hydromorphone 1 Mg/Ml Syringe) 1 mg IVPUSH Q10M PRN PRN Reason: Pain (moderate 4-6) Last Admin: 07/08/21 10:08 Dose: 1 mg Documented by: Cefazolin Sodium/Dextrose 1 gm (/ Premix) 50 mls @ 100 mls/hr IV ONETIME ONE Stop: 07/08/21 05:29 Last Admin: 07/08/21 13:01 Dose: Not Given Documented by: Lactated Ringer's (Ringers, Lactated) 1,000 mls @ 125 mls/hr IV ASDIRECTED [facility] Last Admin: 07/08/21 07:24 Dose: 125 mls/hr Documented by: Acetaminophen 1,000 mg/ Premix 100 mls @ 400 mls/hr IV ONETIME PRN PRN Reason: Pain Morphine Sulfate 50 mg/ Sodium (Chloride) 50 mls @ 2.083 mls/hr IV ASDIRECTED [place]; Protocol Last Infusion: 07/08/21 16:04 Dose: 0 mls/hr Documented by: Ketorolac Tromethamine (Ketorolac 30 Mg/Ml Sdv) Confirm Administered Dose 30 mg .ROUTE .STK-MED ONE Stop: 07/08/21 07:24 Ketorolac Tromethamine (Ketorolac 30 Mg/Ml Sdv) Confirm Administered Dose 30 mg .ROUTE .STK-MED ONE Stop: 07/08/21 07:43 Ketorolac Tromethamine (Ketorolac 30 Mg/Ml Sdv) 30 mg IVPUSH ONETIME ONE Stop: 07/08/21 09:50 Last Admin: 07/08/21 10:30 Dose: Not Given Documented by: Ketorolac Tromethamine (Ketorolac 30 Mg/Ml Sdv) 30 mg IVPUSH Q6H PRN PRN Reason: Pain (severe 7-10) Stop: 07/13/21 09:50 Lidocaine (Lidocaine 2% 5 Ml Sdv) Confirm Administered Dose 5 ml .ROUTE .STK-MED ONE Stop: 07/08/21 07:24 Lidocaine (Lidocaine 2% 5 Ml Sdv) Confirm Administered Dose 5 ml .ROUTE .STK-MED ONE Stop: 07/08/21 07:43 Metoclopramide HCl (Metoclopramide 10 Mg/2 Ml Sdv) 10 mg IVPUSH ONETIME PRN PRN Reason: Nausea/Vomiting Midazolam HCl (Midazolam 1 Mg/Ml 2 Ml Sdv) Confirm Administered Dose 2 mg .ROUTE .STK-MED ONE Stop: 07/08/21 07:23 Midazolam HCl (Midazolam 1 Mg/Ml 2 Ml Sdv) Confirm Administered Dose 2 mg .ROUTE .STK-MED ONE Stop: 07/08/21 07:43 Miscellaneous Medication (Phenylephrine Hcl In 0.9% Nacl 1 Mg/10 Ml Syringe) Confirm Administered Dose 1 mg .ROUTE .STK-MED ONE Stop: 07/08/21 08:13 Morphine Sulfate (Morphine 4 Mg/Ml Vial) 3 mg IVPUSH ONETIME ONE Stop: 07/08/21 11:04 Last Admin: 07/08/21 11:21 Dose: 3 mg Documented by: Naloxone HCl (Naloxone 0.4 Mg/Ml Sdv) 0.1 mg IVPUSH ASDIRECTED PRN PRN Reason: Respiratory Depression Octyl Cyanoacrylate (Octyl 2-Cyanoacrylate 1 Tube) Confirm Administered Dose 1 applic .ROUTE .STK-MED ONE Stop: 07/08/21 07:35 Ondansetron HCl (Ondansetron 4 Mg/2 Ml Sdv) Confirm Administered Dose 4 mg .ROUTE .STK-MED ONE Stop: 07/08/21 07:24 Ondansetron HCl (Ondansetron 4 Mg/2 Ml Sdv) 4 mg IVPUSH ONETIME PRN PRN Reason: Nausea/Vomiting Ondansetron HCl (Ondansetron 4 Mg/2 Ml Sdv) Confirm Administered Dose 4 mg .ROUTE .STK-MED ONE Stop: 07/08/21 07:43 Oxycodone/Acetaminophen (Acetaminophen/Oxycodone 325-5 Mg Tab) 1 tab PO Q4H PRN PRN Reason: Pain (moderate 4-6) Oxycodone/Acetaminophen (Acetaminophen/Oxycodone 325-5 Mg Tab) 2 tab PO Q4H PRN PRN Reason: Pain (moderate 4-6) Propofol (Propofol 200 Mg/20 Ml Sdv) Confirm Administered Dose 200 mg .ROUTE .STK-MED ONE Stop: 07/08/21 07:23 Rocuronium [place] (Rocuronium [place] 50 Mg/5 Ml Syringe) Confirm Administered Dose 50 mg .ROUTE .STK-MED ONE Stop: 07/08/21 07:24 Rocuronium [place] (Rocuronium [place] 50 Mg/5 Ml Syringe) Confirm Administered Dose 50 mg .ROUTE .STK-MED ONE Stop: 07/08/21 07:43 Scopolamine (Scopolamine 1.5 Mg Transdermal Patch) Confirm Administered Dose 1.5 mg .ROUTE .STK-MED ONE Stop: 07/08/21 08:13 Sugammadex Sodium (Sugammadex Sodium 200 Mg/2 Ml Vial) Confirm Administered Dose 200 mg .ROUTE .STK-MED ONE Stop: 07/08/21 07:24 Sugammadex Sodium (Sugammadex Sodium 200 Mg/2 Ml Vial) Confirm Administered Dose 200 mg .ROUTE .STK-MED ONE Stop: 07/08/21 07:43 - Exam Wound/Incisions: Healing Well, Dressing Dry and Intact General: Alert Lungs: Normal Respiratory Effort Cardiovascular: Regular Rate, Regular Rhythm GI/Abdominal Exam: Soft, Tender (appropriately along incision) Extremities: Normal Inspection, Normal Range of Motion, Non-Tender, No Pedal Edema, Normal Capillary Refill Skin: Warm, Dry, Intact Neurological: No New Focal Deficit Psy/Mental Status: Alert, Normal Affect Sepsis Event Note - Focused Exam Vital Signs: Vital Signs Temp Pulse Resp BP Pulse Ox 07/09/21 03:59 36.6 C 63 16 111/63 99 07/09/21 00:07 36.7 C 80 16 100/64 99 07/08/21 20:54 36.7 C 66 16 98/63 100 - Problem List & Annotations (1) Status post abdominal hysterectomy SNOMED Code(s): 073051073, 165131063 Code(s): Z90.710 - ACQUIRED ABSENCE OF BOTH CERVIX AND UTERUS Status: Acute Current Visit: Yes - Problem List Review Problem List Initiated/Reviewed/Updated: Yes - My Orders Last 24 Hours: Active Orders 24 hr Category Date Time Status Patient Status [ADT] Routine ADT 07/08/21 09:50 Active Antiembolic Devices [RC] PER UNIT ROUTINE Care 07/08/21 09:50 Active Blood Glucose Check, Bedside [RC] PRN Care 07/08/21 07:26 Active Communication Order [RC] PER UNIT ROUTINE Care 07/08/21 17:06 Active Notify Provider Intake and Out [RC] ASDIRECTED Care 07/08/21 09:50 Active Notify Provider Vital Signs [RC] ASDIRECTED Care 07/08/21 07:26 Active Notify Provider Vital Signs [RC] ASDIRECTED Care 07/08/21 09:50 Active Overnight Pulse Oximetry [RC] Click to Edit Care 07/08/21 07:26 Active Oxygen Therapy [RC] ASDIRECTED Care 07/08/21 09:50 Active Oxygen Therapy [RC] PRN Care 07/08/21 07:26 Active MARINA PORTER Record [RC] Q4H Care 07/08/21 17:06 Active RT Aerosol Therapy [RC] ASDIRECTED Care 07/08/21 07:26 Active RT Aerosol Therapy [RC] ASDIRECTED Care 07/08/21 07:26 Active RT BiPAP/CPAP [RC] ASDIRECTED Care 07/08/21 07:26 Active RT Incentive Spirometry [RC] Q2HWA Care 07/08/21 09:50 Active Up With Assistance [RC] PER UNIT ROUTINE Care 07/08/21 09:50 Active Up ad Tita [RC] PER UNIT ROUTINE Care 07/08/21 09:50 Active Urinary Catheter Removal [RC] Per Unit Routine Care 07/08/21 09:50 Active Vital Signs [RC] PER UNIT ROUTINE Care 07/08/21 17:06 Active Vital Signs [RC] Q4H Care 07/08/21 09:50 Active Vital Signs [RC] Q5M Care 07/08/21 07:26 Active Regular Diet [DIET] Diet 07/08/21 Lunch Active BASIC METABOLIC PANEL,BMP [CHEM] AM Lab 07/09/21 07:25 Received Docusate Sodium [Colace] Med 07/08/21 21:00 Active 100 mg PO BID HYDROmorphone [Dilaudid] Med 07/09/21 08:00 Active 2 mg PO Q4H PRN HYDROmorphone/Normal Saline [Dilaudid MARINA PORTER 10 MG in NS Med 07/08/21 17:45 Active 50 ML] 10 mg Premix Bag 1 bag IV ASDIRECTED Ketorolac [Toradol] Med 07/08/21 15:30 Active 30 mg IVPUSH Q6H Lactated Ringers [Ringers, Lactated] 1,000 ml Med 07/08/21 10:00 Active IV ASDIRECTED Naloxone [Narcan] Med 07/08/21 17:15 Active 0.4 mg IVPUSH Q3M PRN Ondansetron [Zofran] Med 07/08/21 09:49 Active 4 mg IVPUSH Q6H PRN Promethazine [Phenergan] Med 07/08/21 09:49 Active 25 mg IM Q6H PRN diphenhydrAMINE [Benadryl] Med 07/08/21 17:15 Active 25 mg IVPUSH Q6H PRN diphenhydrAMINE [Benadryl] Med 07/08/21 17:15 Active 25 mg PO Q6H PRN Peripheral IV Discontinue [OM.PC] Routine Oth 07/08/21 09:50 Ordered Pulse Oximetry Continuous Monitoring [OM.PC] Routine Oth 07/08/21 07:26 Ordered Pulse Oximetry Continuous Monitoring [OM.PC] Routine Oth 07/08/21 17:06 Ordered Sequential Compression Device [OM.PC] Per Unit Routine Oth 07/08/21 09:50 Ordered Resuscitation Status Routine Resus Stat 07/08/21 09:49 Ordered Medication Orders Diphenhydramine HCl (Diphenhydramine 50 Mg/Ml Sdv) 25 mg IVPUSH Q6H PRN PRN Reason: Itching Diphenhydramine HCl (Diphenhydramine 25 Mg Cap) 25 mg PO Q6H PRN PRN Reason: Itching Docusate Sodium (Docusate Sodium 100 Mg Cap) 100 mg PO BID [facility] Last Admin: 07/08/21 21:43 Dose: 100 mg Documented by: JERZY Hydromorphone HCl (Hydromorphone 2 Mg Tab) 2 mg PO Q4H PRN PRN Reason: Abdominal Pain Lactated Ringer's (Ringers, Lactated) 1,000 mls @ 125 mls/hr IV ASDIRECTED [place] Last Admin: 07/09/21 00:15 Dose: 125 mls/hr Documented by: JERZY Hydromorphone HCl 10 mg/ (Premix) 50 mls @ 1 mls/hr IV ASDIRECTED PRN; Protocol PRN Reason: Abdominal Pain Last Admin: 07/08/21 18:01 Dose: 1 mls/hr Documented by: RAMO Ketorolac Tromethamine (Ketorolac 30 Mg/Ml Sdv) 30 mg IVPUSH Q6H [place] Stop: 07/09/21 09:31 Last Admin: 07/09/21 03:43 Dose: 30 mg Documented by: Admin: 07/08/21 21:42 Dose: 30 mg Documented by: Admin: 07/08/21 15:01 Dose: 30 mg Documented by: DIANA Naloxone HCl (Naloxone 0.4 Mg/Ml Sdv) 0.4 mg IVPUSH Q3M PRN PRN Reason: Respiratory Depression Ondansetron HCl (Ondansetron 4 Mg/2 Ml Sdv) 4 mg IVPUSH Q6H PRN PRN Reason: Nausea/Vomiting Last Admin: 07/09/21 03:43 Dose: 4 mg Documented by: Admin: 07/08/21 21:43 Dose: 4 mg Documented by: Admin: 07/08/21 15:08 Dose: 4 mg Documented by: DIANA Promethazine HCl (Promethazine 25 Mg/Ml Sdv) 25 mg IM Q6H PRN PRN Reason: Nausea/Vomiting Last Admin: 07/08/21 11:29 Dose: 25 mg Documented by: RAMO Sodium Chloride (Sodium Chloride 0.9% 10 Ml Syringe) 10 ml FLUSH ASDIRECTED PRN PRN Reason: Keep Vein Open Sodium Chloride (Sodium Chloride 0.9% 2.5 Ml Syringe) 2.5 ml FLUSH ASDIRECTED P RN PRN Reason: Keep Vein Open Sodium Chloride (Sodium Chloride 0.9% 20 Ml Sdv) 10 ml IV ASDIRECTED PRN PRN Reason: IV Use - Assessment Assessment (Free Text/Narrative):: POD 1 status post TEMITOPE/adhesiolysis - Plan Plan (Free Text/Narrative):: VS are reassuring, as well as CBC. BMP pending yet. Will continue postoperative cares today. Jay removed. Encourage ambulation and may shower. If does well today, anticipate discharge tomorrow.
[2021-07-09] MEDS: Docusate Sodium 100 MG Cap PO SCH ×2 (08:23→21:41)
[2021-07-09 08:31] LABS: BLOOD UREA NITROGEN,BUN 5 mg/dL (7.0-18.0); CARBON DIOXIDE,CO2 28.9 mmol/L (21.0-32.0); CHLORIDE,CL 102 mmol/L (98-107); GLUCOSE RANDOM 117 mg/dL (74-106); POTASSIUM,K 4.4 mmol/L (3.5-5.1); SODIUM,NA 139 mmol/L (136-145)
[2021-07-09] MEDS: HYDROmorphone 2 MG Tab PO PRN ×4 (08:49→21:49)
[2021-07-09] MEDS: Ibuprofen 600 MG Tab PO SCH ×2 (16:04→21:41)
[2021-07-09] MEDS ORDERED: Bisacodyl 10 MG Supp RECTAL ONE (18:16)
[2021-07-10] MEDS: Ibuprofen 600 MG Tab PO SCH ×2 (03:50→10:01)
[2021-07-10] MEDS: HYDROmorphone 2 MG Tab PO PRN ×2 (03:52→08:40)
[2021-07-10] MEDS: Docusate Sodium 100 MG Cap PO SCH (08:42)
--- NOTE | 2021-07-10 09:17 | PCM.SURGPN ---
- General Info Date of Service: 07/10/21 POD#: 2 Functional Status: Reports: Pain Controlled, Tolerating Diet, Ambulating, Urinating - Review of Systems General: Denies: Fever, Weakness, Fatigue Pulmonary: Denies: Shortness of Breath Cardiovascular: Denies: Chest Pain, Palpitations, Lightheadedness Gastrointestinal: Denies: Abdominal Pain, Nausea, Vomiting Genitourinary: Denies: Flank Pain Skin: Reports: No Symptoms Neurological: Reports: No Symptoms Psychiatric: Reports: No Symptoms - Patient Data Vitals - Most Recent: Last Vital Signs Temp 36.1 C 07/10/21 04:16 Pulse 75 07/10/21 04:16 Resp 16 07/10/21 04:16 BP 96/63 07/10/21 04:16 Pulse Ox 98 07/10/21 04:16 Weight - Most Recent: 72.121 kg I&O - Last 24 Hours: Intake & Output 07/09/21 07/10/21 07/10/21 22:59 06:59 14:59 Intake Total 840 1125 Output Total 1500 Balance -660 1125 Med Orders - Current: Current Medications Diphenhydramine HCl (Diphenhydramine 50 Mg/Ml Sdv) 25 mg IVPUSH Q6H PRN PRN Reason: Itching Diphenhydramine HCl (Diphenhydramine 25 Mg Cap) 25 mg PO Q6H PRN PRN Reason: Itching Docusate Sodium (Docusate Sodium 100 Mg Cap) 100 mg PO BID [facility] Last Admin: 07/10/21 08:42 Dose: 100 mg Documented by: Hydromorphone HCl (Hydromorphone 2 Mg Tab) 2 mg PO Q4H PRN PRN Reason: Abdominal Pain Last Admin: 07/10/21 08:40 Dose: 2 mg Documented by: Ibuprofen (Ibuprofen 600 Mg Tab) 600 mg PO Q6H MI Last Admin: 07/10/21 03:50 Dose: 600 mg Documented by: Naloxone HCl (Naloxone 0.4 Mg/Ml Sdv) 0.4 mg IVPUSH Q3M PRN PRN Reason: Respiratory Depression Ondansetron HCl (Ondansetron 4 Mg/2 Ml Sdv) 4 mg IVPUSH Q6H PRN PRN Reason: Nausea/Vomiting Last Admin: 07/09/21 03:43 Dose: 4 mg Documented by: Promethazine HCl (Promethazine 25 Mg/Ml Sdv) 25 mg IM Q6H PRN PRN Reason: Nausea/Vomiting Last Admin: 07/08/21 11:29 Dose: 25 mg Documented by: Sodium Chloride (Sodium Chloride 0.9% 10 Ml Syringe) 10 ml FLUSH ASDIRECTED PRN PRN Reason: Keep Vein Open Sodium Chloride (Sodium Chloride 0.9% 2.5 Ml Syringe) 2.5 ml FLUSH ASDIRECTED PRN PRN Reason: Keep Vein Open Sodium Chloride (Sodium Chloride 0.9% 20 Ml Sdv) 10 ml IV ASDIRECTED PRN PRN Reason: IV Use Discontinued Medications Albuterol (Albuterol 0.083% 2.5 Mg/3 Ml Neb Soln) 2.5 mg NEB ONETIME PRN PRN Reason: Wheezing Bisacodyl (Bisacodyl 10 Mg Supp) 10 mg RECTAL ONETIME ONE Stop: 07/09/21 18:17 Last Admin: 07/09/21 18:35 Dose: 10 mg Documented by: Bupivacaine HCl (Bupivacaine 0.25% 10 Ml Sdv) Confirm Administered Dose 10 ml .ROUTE .STK-MED ONE Stop: 07/08/21 07:35 Droperidol (Droperidol 5 Mg/2 Ml Sdv) 0.625 mg IVPUSH ONETIME PRN PRN Reason: Nausea/Vomiting Fentanyl (Fentanyl 250 Mcg/5 Ml Sdv) Confirm Administered Dose 250 mcg .ROUTE .STK-MED ONE Stop: 07/08/21 07:23 Fentanyl (Fentanyl 100 Mcg/2 Ml Sdv) 50 mcg IVPUSH Q5M PRN PRN Reason: Pain (mild 1-3) Last Admin: 07/08/21 10:33 Dose: 50 mcg Documented by: Fentanyl (Fentanyl 250 Mcg/5 Ml Sdv) Confirm Administered Dose 250 mcg .ROUTE .STK-MED ONE Stop: 07/08/21 07:43 Fentanyl (Fentanyl 100 Mcg/2 Ml Sdv) Confirm Administered Dose 100 mcg .ROUTE .STK-MED ONE Stop: 07/08/21 09:42 Fluorescein Sodium (Fluorescein 5 Ml Vial) Confirm Administered Dose 5 ml .ROUTE .STK-MED ONE Stop: 07/08/21 07:35 Glycopyrrolate (Glycopyrrolate 0.2 Mg/Ml Sdv) Confirm Administered Dose 0.2 mg . ROUTE .STK-MED ONE Stop: 07/08/21 07:24 Glycopyrrolate (Glycopyrrolate 0.2 Mg/Ml Sdv) Confirm Administered Dose 0.2 mg .ROUTE .STK-MED ONE Stop: 07/08/21 07:43 Hydromorphone HCl (Hydromorphone 1 Mg/Ml Syringe) 1 mg IVPUSH Q10M PRN PRN Reason: Pain (moderate 4-6) Last Admin: 07/08/21 10:08 Dose: 1 mg Documented by: Cefazolin Sodium/Dextrose 1 gm (/ Premix) 50 mls @ 100 mls/hr IV ONETIME ONE Stop: 07/08/21 05:29 Last Admin: 07/08/21 13:01 Dose: Not Given Documented by: Lactated Ringer's (Ringers, Lactated) 1,000 mls @ 125 mls/hr IV ASDIRECTED [facility] Last Admin: 07/08/21 07:24 Dose: 125 mls/hr Documented by: Acetaminophen 1,000 mg/ Premix 100 mls @ 400 mls/hr IV ONETIME PRN PRN Reason: Pain Lactated Ringer's (Ringers, Lactated) 1,000 mls @ 125 mls/hr IV ASDIRECTED [facility] Last Admin: 07/09/21 00:15 Dose: 125 mls/hr Documented by: Morphine Sulfate 50 mg/ Sodium (Chloride) 50 mls @ 2.083 mls/hr IV ASDIRECTED [facility]; Protocol Last Infusion: 07/08/21 16:04 Dose: 0 mls/hr Documented by: Hydromorphone HCl 10 mg/ (Premix) 50 mls @ 1 mls/hr IV ASDIRECTED PRN; Protocol PRN Reason: Abdominal Pain Last Admin: 07/08/21 18:01 Dose: 1 mls/hr Documented by: Ketorolac Tromethamine (Ketorolac 30 Mg/Ml Sdv) Confirm Administered Dose 30 mg .ROUTE .STK-MED ONE Stop: 07/08/21 07:24 Ketorolac Tromethamine (Ketorolac 30 Mg/Ml Sdv) Confirm Administered Dose 30 mg .ROUTE .STK-MED ONE Stop: 07/08/21 07:43 Ketorolac Tromethamine (Ketorolac 30 Mg/Ml Sdv) 30 mg IVPUSH ONETIME ONE Stop: 07/08/21 09:50 Last Admin: 07/08/21 10:30 Dose: Not Given Documented by: Ketorolac Tromethamine (Ketorolac 30 Mg/Ml Sdv) 30 mg IVPUSH Q6H PRN PRN Reason: Pain (severe 7-10) Stop: 07/13/21 09:50 Ketorolac Tromethamine (Ketorolac 30 Mg/Ml Sdv) 30 mg IVPUSH Q6H [place] Stop: 07/09/21 09:31 Last Admin: 07/09/21 09:59 Dose: 30 mg Documented by: Lidocaine (Lidocaine 2% 5 Ml Sdv) Confirm Administered Dose 5 ml .ROUTE .STK-MED ONE Stop: 07/08/21 07:24 Lidocaine (Lidocaine 2% 5 Ml Sdv) Confirm Administered Dose 5 ml .ROUTE .STK-MED ONE Stop: 07/08/21 07:43 Metoclopramide HCl (Metoclopramide 10 Mg/2 Ml Sdv) 10 mg IVPUSH ONETIME PRN PRN Reason: Nausea/Vomiting Midazolam HCl (Midazolam 1 Mg/Ml 2 Ml Sdv) Confirm Administered Dose 2 mg .ROUTE .STK-MED ONE Stop: 07/08/21 07:23 Midazolam HCl (Midazolam 1 Mg/Ml 2 Ml Sdv) Confirm Administered Dose 2 mg .ROUTE .STK-MED ONE Stop: 07/08/21 07:43 Miscellaneous Medication (Phenylephrine Hcl In 0.9% Nacl 1 Mg/10 Ml Syringe) Confirm Administered Dose 1 mg .ROUTE .STK-MED ONE Stop: 07/08/21 08:13 Morphine Sulfate (Morphine 4 Mg/Ml Vial) 3 mg IVPUSH ONETIME ONE Stop: 07/08/21 11:04 Last Admin: 07/08/21 11:21 Dose: 3 mg Documented by: Naloxone HCl (Naloxone 0.4 Mg/Ml Sdv) 0.1 mg IVPUSH ASDIRECTED PRN PRN Reason: Respiratory Depression Octyl Cyanoacrylate (Octyl 2-Cyanoacrylate 1 Tube) Confirm Administered Dose 1 applic .ROUTE .STK-MED ONE Stop: 07/08/21 07:35 Ondansetron HCl (Ondansetron 4 Mg/2 Ml Sdv) Confirm Administered Dose 4 mg .ROUTE .STK-MED ONE Stop: 07/08/21 07:24 Ondansetron HCl (Ondansetron 4 Mg/2 Ml Sdv) 4 mg IVPUSH ONETIME PRN PRN Reason: Nausea/Vomiting Ondansetron HCl (Ondansetron 4 Mg/2 Ml Sdv) Confirm Administered Dose 4 mg .ROUTE .STK-MED ONE Stop: 07/08/21 07:43 Oxycodone/Acetaminophen (Acetaminophen/Oxycodone 325-5 Mg Tab) 1 tab PO Q4H PRN PRN Reason: Pain (moderate 4-6) Oxycodone/Acetaminophen (Acetaminophen/Oxycodone 325-5 Mg Tab) 2 tab PO Q4H PRN PRN Reason: Pain (moderate 4-6) Propofol (Propofol 200 Mg/20 Ml Sdv) Confirm Administered Dose 200 mg .ROUTE .STK-MED ONE Stop: 07/08/21 07:23 Rocuronium Bosque (Rocuronium Bosque 50 Mg/5 Ml Syringe) Confirm Administered Dose 50 mg .ROUTE .STK-MED ONE Stop: 07/08/21 07:24 Rocuronium Bosque (Rocuronium Bosque 50 Mg/5 Ml Syringe) Confirm Administered Dose 50 mg .ROUTE .STK-MED ONE Stop: 07/08/21 07:43 Scopolamine (Scopolamine 1.5 Mg Transdermal Patch) Confirm Administered Dose 1.5 mg .ROUTE .STK-MED ONE Stop: 07/08/21 08:13 Sugammadex Sodium (Sugammadex Sodium 200 Mg/2 Ml Vial) Confirm Administered Dose 200 mg .ROUTE .STK-MED ONE Stop: 07/08/21 07:24 Sugammadex Sodium (Sugammadex Sodium 200 Mg/2 Ml Vial) Confirm Administered Dose 200 mg .ROUTE .STK-MED ONE Stop: 07/08/21 07:43 - Exam Wound/Incisions: Healing Well, No Drainage. No: Erythema General: Alert, Oriented Lungs: Normal Respiratory Effort Cardiovascular: Regular Rate, Regular Rhythm GI/Abdominal Exam: Normal Bowel Sounds, Soft Extremities: Pedal Edema (trace). No: Jordon's Sign Skin: Warm, Dry, Intact Neurological: No New Focal Deficit Psy/Mental Status: Alert, Normal Affect, Normal Mood Sepsis Event Note - Focused Exam Vital Signs: Vital Signs Temp Pulse Resp BP Pulse Ox 07/10/21 04:16 36.1 C 75 16 96/63 98 07/10/21 00:24 36.9 C 77 15 96/54 L 94 L - Problem List & Annotations (1) Status post abdominal hysterectomy SNOMED Code(s): 655630779, 534961543 Code(s): Z90.710 - ACQUIRED ABSENCE OF BOTH CERVIX AND UTERUS Status: Acute Current Visit: Yes - Problem List Review Problem List Initiated/Reviewed/Updated: Yes - My Orders Last 24 Hours: Active Orders 24 hr Category Date Time Status Ambulate [RC] ASDIRECTED Care 07/09/21 18:16 Active Ready for Discharge [RC] PER UNIT ROUTINE Care 07/10/21 09:15 Ordered Ibuprofen [Motrin] Med 07/09/21 16:00 Active 600 mg PO Q6H Medication Orders Diphenhydramine HCl (Diphenhydramine 50 Mg/Ml Sdv) 25 mg IVPUSH Q6H PRN PRN Reason: Itching Diphenhydramine HCl (Diphenhydramine 25 Mg Cap) 25 mg PO Q6H PRN PRN Reason: Itching Docusate Sodium (Docusate Sodium 100 Mg Cap) 100 mg PO BID [facility] Last Admin: 07/10/21 08:42 Dose: 100 mg Documented by: Admin: 07/09/21 21:41 Dose: 100 mg Documented by: Admin: 07/09/21 08:23 Dose: 100 mg Documented by: Admin: 07/08/21 21:43 Dose: 100 mg Documented by: JERZY Hydromorphone HCl (Hydromorphone 2 Mg Tab) 2 mg PO Q4H PRN PRN Reason: Abdominal Pain Last Admin: 07/10/21 08:40 Dose: 2 mg Documented by: Admin: 07/10/21 03:52 Dose: 2 mg Documented by: Admin: 07/09/21 21:49 Dose: 2 mg Documented by: Admin: 07/09/21 17:25 Dose: 2 mg Documented by: Admin: 07/09/21 12:49 Dose: 2 mg Documented by: Admin: 07/09/21 08:49 Dose: 2 mg Documented by: KEV Ibuprofen (Ibuprofen 600 Mg Tab) 600 mg PO Q6H [facility] Last Admin: 07/10/21 03:50 Dose: 600 mg Documented by: Admin: 07/09/21 21:41 Dose: 600 mg Documented by: Admin: 07/09/21 16:04 Dose: 600 mg Documented by: KEV Naloxone HCl (Naloxone 0.4 Mg/Ml Sdv) 0.4 mg IVPUSH Q3M PRN PRN Reason: Respiratory Depression Ondansetron HCl (Ondansetron 4 Mg/2 Ml Sdv) 4 mg IVPUSH Q6H PRN PRN Reason: Nausea/Vomiting Last Admin: 07/09/21 03:43 Dose: 4 mg Documented by: Admin: 07/08/21 21:43 Dose: 4 mg Documented by: Admin: 07/08/21 15:08 Dose: 4 mg Documented by: DIANA Promethazine HCl (Promethazine 25 Mg/Ml Sdv) 25 mg IM Q6H PRN PRN Reason: Nausea/Vomiting Last Admin: 07/08/21 11:29 Dose: 25 mg Documented by: RAMO Sodium Chloride (Sodium Chloride 0.9% 10 Ml Syringe) 10 ml FLUSH ASDIRECTED PRN PRN Reason: Keep Vein Open Sodium Chloride (Sodium Chloride 0.9% 2.5 Ml Syringe) 2.5 ml FLUSH ASDIRECTED PRN PRN Reason: Keep Vein Open Sodium Chloride (Sodium Chloride 0.9% 20 Ml Sdv) 10 ml IV ASDIRECTED PRN PRN Reason: IV Use - Assessment Assessment (Free Text/Narrative):: POD 2 status post TEMITOPE/adhesiolysis/cystoscopy - Plan Plan (Free Text/Narrative):: Patient doing well--feeling good today and feels ready to go home. Discharge instructions reviewed. Prescriptions sent to [facility] yesterday thru my clinic EMR. Follow up at [facility] 2 and 6 weeks. Discharge to home today.
== END 2021-07-10 11:50 | disposition home or self-care (01) | DRG 513 ==
LOC: MW.MS 06:49
PROVIDERS: ADMIT Obstetrics & Gynecology; ATTEND Obstetrics & Gynecology
PROC: 0UT90ZZ Resection of Uterus, Open Approach (ICD-10-PCS; principal; 2021-07-08)
PROC: 0TJB8ZZ Inspection of Bladder, Via Natural or Artificial Opening Endoscopic (ICD-10-PCS; 2021-07-08)
DX: N92.1 Excessive and frequent menstruation with irregular cycle (principal); K21.9 Gastro-esophageal reflux disease without esophagitis; J45.909 Unspecified asthma, uncomplicated; Z90.49 Acquired absence of other specified parts of digestive tract; Z98.890 Other specified postprocedural states; N73.6 Female pelvic peritoneal adhesions (postinfective)
CPT/HCPCS: 00840; 36415; 80048; 84703; 85025; 85027; 86850; 86900; 86901; A9270-GY; J1170; J1885; J2250; J2270; J2370; J2405; J2550; J2704; J3010; J3490; J7030; J7120

== ENCOUNTER 2023-05-02 09:28 | Emergency (ER) | payer BC ==
[2023-05-02 10:15] LABS: BASOPHILS PERCENT AUTO 0.3 % (0.0-1.5); EOSINOPHILS ABSOLUTE AUTO 0.1 K/uL (0.0-0.7); HEMATOCRIT 36.7 % (36.0-46.0); HEMOGLOBIN 12.1 g/dL (12.0-16.0); LYMPHOCYTES ABSOLUTE AUTO 2.4 K/uL (0.6-2.4); LYMPHOCYTES PERCENT AUTO 29.8 % (16.0-40.0); MEAN CORPUSCULAR HEMOGLOBIN 29.7 pg (27.0-32.0); MONOCYTES ABSOLUTE AUTO 0.7 K/uL (0.0-0.8); MONOCYTES PERCENT AUTO 8.5 % (0.0-15.0); NEUTROPHILS ABSOLUTE AUTO 4.8 K/uL (1.4-5.7); NEUTROPHILS PERCENT AUTO 60.4 % (48.0-80.0); NRBC ABSOLUTE 0 K/uL; PLATELET COUNT,PLT 249 K/uL (150-400); RED BLOOD CELL COUNT 4.08 M/uL (4.30-5.90); WHITE BLOOD CELL COUNT,WBC 7.89 K/uL (4.0-11.0)
[2023-05-02 10:16] LABS: APPEARANCE,URINE CLEAR; BILIRUBIN,URINE NEGATIVE (NEGATIVE); COLOR,URINE YELLOW; GLUCOSE,URINE NEGATIVE (NEGATIVE); KETONES,URINE NEGATIVE (NEGATIVE); LEUKOCYTE ESTERASE,URINE NEGATIVE (NEGATIVE); NITRITE,URINE NEGATIVE (NEGATIVE); OCCULT BLOOD,URINE NEGATIVE (NEGATIVE); PROTEIN,URINE NEGATIVE (NEGATIVE)
[2023-05-02] MEDS ORDERED: Sodium Chloride 0.9% 1,000 ML IV ONE (10:30)
[2023-05-02 10:31] LABS: ALBUMIN 3.4 g/dL (3.4-5.0); BILIRUBIN TOTAL 0.7 mg/dL (0.2-1.0); CALCIUM 8.4 mg/dL (8.5-10.1); CARBON DIOXIDE,CO2 30.1 mmol/L (21.0-32.0); CREATININE 0.6 mg/dL (0.6-1.0); EST CRCL DRUG DOSING (CG) 124.84 mL/min; POTASSIUM,K 3.8 mmol/L (3.5-5.1); PROTEIN TOTAL,TP 6.8 g/dL (6.4-8.2)
[2023-05-02] MEDS ORDERED: Naloxone 0.4 MG/ML SDV IVPUSH PRN (10:31)
[2023-05-02] MEDS ORDERED: HYDROmorphone 1 MG/ML Syringe IVPUSH ONE (10:31)
[2023-05-02] MEDS ORDERED: Ondansetron 4 MG/2 ML SDV IVPUSH STA (10:46)
[2023-05-02 11:00] LABS: CORONAVIRUS COVID-19 NAA NEGATIVE (NEGATIVE); INFLUENZA A NAA NEGATIVE (NEGATIVE); INFLUENZA B NAA NEGATIVE (NEGATIVE)
[2023-05-02 11:19] LABS: LACTIC ACID 0.7 mmol/L (0.4-2.0)
[2023-05-02] MEDS ORDERED: Acetaminophen 650 MG Supp RECTAL ONE (11:21)
[2023-05-02] MEDS ORDERED: Acetaminophen 325 MG Supp ONE (11:24)
[2023-05-02] MEDS ORDERED: Acetaminophen 325 MG Supp RECTAL ONE (11:24)
[2023-05-02] MEDS ORDERED: HYDROmorphone 1 MG/ML Syringe IVPUSH STA (11:34)
[2023-05-02] MEDS ORDERED: cefTRIAXone 2 GM in Sodium Chloride 0.9% 50 ML IV ONE (12:13)
== END 2023-05-02 12:45 ==
LOC: MW.ED 09:28
DX: R50.9 Fever, unspecified (principal); M54.50 Low back pain, unspecified; J45.909 Unspecified asthma, uncomplicated; K21.9 Gastro-esophageal reflux disease without esophagitis; Z88.1 Allergy status to other antibiotic agents; Z88.2 Allergy status to sulfonamides; Z79.899 Other long term (current) drug therapy; Z98.890 Other specified postprocedural states; Z20.822 Contact with and (suspected) exposure to COVID-19
CPT/HCPCS: 0240U; 36415; 51702; 72100; 80053; 81003; 81025; 83605; 83690; 85025; 87040; 96361; 96374; 96375; 96376; 99284; A9270; J0696; J1170; J2405; J3490; J7030

== ENCOUNTER 2023-07-01 11:13 | Day surgery (SDC) | payer BC ==
[~2023-07-01 11:13] MED LIST changes: +Lactated Ringers 1,000 ML IV SCH; -ceFAZolin 1 GM in Premix Bag 1 BAG IV ONE
[2023-07-01] MEDS ORDERED: Lidocaine 2% 5 ML SDV ONE (11:37)
[2023-07-01] MEDS ORDERED: Propofol 200 MG/20 ML SDV ONE (11:37)
[2023-07-01] MEDS ORDERED: Glycopyrrolate 0.2 MG/ML SDV ONE (11:46)
[2023-07-01] MEDS ORDERED: ceFAZolin 2 GM Vial ONE (13:04)
== END 2023-07-01 14:17 | disposition home or self-care (01) ==
LOC: MW.SDS 11:13
PROVIDERS: ATTEND Surgery
DX: K21.9 Gastro-esophageal reflux disease without esophagitis (principal); K44.9 Diaphragmatic hernia without obstruction or gangrene; G89.29 Other chronic pain; J45.909 Unspecified asthma, uncomplicated; Z90.49 Acquired absence of other specified parts of digestive tract; Z87.891 Personal history of nicotine dependence; Z90.710 Acquired absence of both cervix and uterus; Z79.899 Other long term (current) drug therapy; Z91.048 Other nonmedicinal substance allergy status; Z91.09 Other allergy status, other than to drugs and biological substances; Z88.2 Allergy status to sulfonamides; Z88.1 Allergy status to other antibiotic agents
CPT/HCPCS: 43239; 45380; J0690; J2704; J7120; 00813; J3490